=== PATIENT | female | born 1970 | race Caucasian/White ===

== ENCOUNTER 2020-06-20 06:53 | Outpatient (NON) | payer OTHER, SELFPAY ==
[2020-06-20 16:05] LABS: Influenza Control Positive
[2020-06-21 19:25] LABS: SARS-CoV-2 RNA PCR Negative
== END 2020-06-20 06:54 ==
LOC: ANHCOVIDDT 07:07
PROVIDERS: PCP Family Medicine; Visit Provider Family Medicine
DX: J02.9 Acute pharyngitis, unspecified (principal); Z20.828 Contact with and (suspected) exposure to other viral communicable diseases
CPT/HCPCS: 87635; 87804; C9803; U0003

== ENCOUNTER 2020-07-31 12:50 | Outpatient (NON) | payer OTHER, SELFPAY ==
[2020-07-31 13:57] LABS: Influenza Control Positive
== END 2020-07-31 12:51 ==
LOC: ANHCOVIDDT 12:51
PROVIDERS: PCP Family Medicine; Visit Provider Family Medicine
DX: R05 Cough (principal)
CPT/HCPCS: 87804

== ENCOUNTER 2021-01-09 10:49 | Outpatient (CLI) | payer OTHER, SELFPAY ==
--- NOTE | ~2021-01-09 | XR_ITS ---
EXAMINATION: XR foot RT min 3V EXAM DATE: 01/09/2021 11:03 INDICATION: Initial encounter following injury, with pain of the right 3rd-5th metatarsal bones. TECHNIQUE: Right foot dorsoplantar, lateral and oblique projections obtained and reviewed. There is no prior study for comparison. FINDINGS: Right metatarsal bones unremarkable. There are no acute fractures or dislocations identifi ed. There is no subcutaneous gas. The soft tissue is unremarkable. There are no radiopaque foreig n bodies. IMPRESSION: 1. Unremarkable right foot exam. Reviewed, dictated and finalized at location A.
== END 2021-01-09 10:50 | disposition home or self-care (01) ==
PROVIDERS: PCP Family Medicine; Visit Provider Family Medicine
DX: M79.671 Pain in right foot (principal)
CPT/HCPCS: 73630

== ENCOUNTER → 2021-05-07 04:17 | Outpatient (CLI) | payer OTHER, SELFPAY ==
[2021-05-07 18:05] LABS: SARS-CoV-2 RNA PCR Negative
== END ==
PROVIDERS: PCP Family Medicine; Visit Provider Family Medicine
DX: R05.9 Cough, unspecified (principal); Z20.822 Contact with and (suspected) exposure to COVID-19
CPT/HCPCS: C9803; U0003; U0005

== ENCOUNTER 2021-07-17 10:47 | Outpatient (CLI) | payer OTHER, SELFPAY ==
--- NOTE | ~2021-07-17 | XR_ITS ---
EXAMINATION: XR hand LT min 3V INDICATION: Other specified soft tissue disorders, cyst of the third finger TECHNIQUE: Three views of the left hand are obtained. COMPARISON: None available FINDINGS: There is no fracture, dislocation, or subluxation. No specific soft tissue abnormality of t he fingers is identified. The joint spaces are unremarkable. IMPRESSION: 1. No acute osseous or specific soft tissue abnormality. Reviewed, dictated and finalized at location A. EM CONTROLLER
== END 2021-07-17 10:48 | disposition home or self-care (01) ==
LOC: ANHIMG 10:48
PROVIDERS: PCP Family Medicine; Visit Provider Family Medicine
DX: M79.89 Other specified soft tissue disorders (principal)
CPT/HCPCS: 73130

== ENCOUNTER 2021-08-14 14:34 | Outpatient (CLI) | payer OTHER, SELFPAY ==
--- NOTE | ~2021-08-14 | XR_ITS ---
EXAMINATION: XR chest 2V EXAM DATE: 08/14/2021 14:46 INDICATION: R05 - Cough, chest tightness. History pulmonary hypertension. TECHNIQUE: Frontal and lateral projections of the chest obtained and reviewed. Comparison is made to prior examination from 10/01/2017. FINDINGS: The main, central pulmonary arteries are dilated which can indicate elevated pulmonary beth rial pressure, pulmonary arterial hypertension. The lungs are clear. There are no pleural effusions. The cardiomediastinal silhouette is within normal limits. There is no pneumothorax suspected. The bones and soft tissues are unremarkable. IMPRESSION: No acute cardiopulmonary findings. Reviewed, dictated and finalized at location A. ER HOT KNIFE
== END 2021-08-14 14:35 | disposition home or self-care (01) ==
LOC: ANHIMG 14:37
PROVIDERS: PCP Family Medicine; Visit Provider Family Medicine
DX: R05.9 Cough, unspecified (principal)
CPT/HCPCS: 71046

== ENCOUNTER 2021-12-28 22:28 | Observation (INO) | payer OTHER, SELFPAY ==
--- NOTE | ~2021-12-28 | CT_ITS ---
EXAMINATION: CT abdomen pelvis wo con DATE: 12/29/2021 00:08 INDICATION: Left lower quadrant abdominal pain for 2 days TECHNIQUE: Computed tomography (CT) of the abdomen and pelvis was performed without intravenous contr ast. Automated exposure control and iterative reconstruction technique were employed. Exam dose: 892 .86 mGy-cm total exam DLP. COMPARISON: None. FINDINGS: There is minimal patchy posterior basilar right lower lobe infiltrate. The lung bases are o therwise clear of consolidation. Heart size is normal. No pericardial or pleural effusion. The liver, gallbladder, bile ducts, pancreas and pancreatic duct are unremarkable. Spleen measures approximately 12.3 cm length, within upper limits of normal. Normal morphology of the adrenal glands. No renal mass lesion or urinary tract calculus or hydroureteronephrosis. There is an IUD within the uterus. There are a couple of approximately 2-2.5 cm cysts in the left adn exal area. Mild accumulation of possible high density fluid, possibly blood in the posterior cul-de-sac. The urinary bladder is evacuated. The appendix is not visualized. No appendicitis is noted. No bowel obstruction, bowel wall thickening , pneumatosis or intraperitoneal free air. Small fat-containing umbilical hernia. Included skeletal structures are unremarkable. IMPRESSION: . 2 proximal lead II-2.5 cm left ovarian cyst IUD within uterus Mild possible blood collection in posterior cul-de-sac Reviewed, dictated and finalized at Location A. Reviewed, dictated and finalized at location A.
[2021-12-28 22:30] VITALS: BP 138/81; PULSE 87; RESP 18; TEMP 36.6; O2SAT 100
[2021-12-28 23:38] VITALS: BP 119/74; PULSE 72; RESP 20; O2SAT 99
--- NOTE | 2021-12-28 23:42 | ED.ABDPAIN ---
HPI - Abdominal Pain General Chief Complaint: Abdominal Pain Stated Complaint: abd pain Time Seen by Provider: 12/28/21 23:37 History of Present Illness HPI narrative: 51-year-old female presents emergency room for evaluation of left lower quadrant pain has been present for 3 days. Patient states it was a gradual onset is accompanied with some bloating. Patient denies any nausea, vomiting, diarrhea or constipation. Patient denies any radiating pain. Denies fever. No history of similar symptoms. Has a history of tubal ligation and . States her last menstrual cycle was several years ago Related Data Home Medications Medication Instructions Recorded Confirmed spironolactone 50 mg tablet 50 mg PO DAILY 06/26/19 01/09/21 warfarin 2.5 mg tablet 2.5 mg PO DAILY 06/26/19 01/09/21 furosemide 40 mg tablet (Lasix) 40 mg PO QAM 09/12/19 01/09/21 omeprazole 20 mg capsule,delayed 20 mg PO DAILY 09/12/19 01/09/21 release tadalafil 20 mg tablet 20 mg PO DAILY PRN 10/03/21 ambrisentan 10 mg tablet (Letairis) mg PO 12/28/21 ambrisentan 10 mg tablet (Letairis) tablet PO 12/28/21 tadalafil (pulm. hypertension) 20 tablet 12/28/21 mg tablet (pulmonary hypertension) Allergies Allergy/AdvReac Type Severity Reaction Status Date / Time cefuroxime Allergy Unknown Hives / Verified 12/28/21 23:31 Red Face Penicillins Allergy Unknown Hives Verified 12/28/21 23:31 Review of Systems Review of Systems: CONSTITUTIONAL: Denies fever, chills, or sweats. EYES: Denies visual changes, redness, or discharge. ENT: Denies rhinorrhea, congestion, sore throat, or otalgia. CARDIOVASCULAR: Denies chest pain, palpitations, or edema. RESPIRATORY: Denies cough or dyspnea. GASTROINTESTINAL: Reports left lower quadrant pain GENITOURINARY: Denies dysuria or hematuria. SKIN: Denies rash or itching. MUSCULOSKELETAL: Denies back pain, joint pain, or myalgia. NEUROLOGIC: Denies headache, numbness, dizziness, or weakness. PSYCHIATRIC: Denies anxiety or depression. [facility] Past Medical History Medical History Hyperlipidemia Pulmonary hypertension Vitamin D deficiency Surgical History Surgical History H/O tubal ligation Family History Family History Father Diabetes mellitus Hypertension Family history of diabetes mellitus in first degree relative Mother Hypertension Grandparent Diabetes mellitus Social History Social History Smoking status: Never smoker Second hand tobacco smoke exposure: No Alcohol intake: current Substance use: never Substance use type: does not use Gender identity (if verbalized by the patient): Female Spiritual care concerns: No Agree to blood products: Yes Exam Narrative: GENERAL: Well-appearing, well-nourished, and in no acute distress. HEAD: Normocephalic, atraumatic. EYES: PERRLA and EOMI. CHEST: Clear to auscultation. No respiratory distress. No wheezes rales or rhonchi HEART: Regular rate and rhythm. No murmur heard. Normal peripheral pulses. ABDOMEN: Soft, left lower quadrant tenderness, nondistended, normal active bowel sounds. No CVA tenderness EXTREMITIES: Normal range of motion. No edema. SKIN: Warm, dry, no rash. NEURO: No focal deficits. Alert and oriented x3. PSYCH: Normal mood and affect. Course Vital Signs Vital signs: Vital Signs Temperature 36.6 C 12/28/21 22:30 Pulse Rate 87 12/28/21 22:30 Respiratory Rate 18 12/28/21 22:30 Blood Pressure 138/81 12/28/21 22:30 Pulse Oximetry 100 12/28/21 22:30 Oxygen Delivery Room Air 12/28/21 22:30 Temperature 36.6 C 12/28/21 22:30 Pulse Rate 72 12/28/21 23:38 Respiratory Rate 20 12/28/21 23:38 Blood Pressure 119/74 12/28/21 23:38 Pulse Oximetry 99 12/28/21 23:38
[2021-12-28 23:43] LABS: Appearance Urine Clear (Clear); Bilirubin Urine Negative (Negative); Blood Urine Trace-lysed (Negative); Color Urine Yellow (Yellow); Glucose Urine UA Negative (Negative); Ketones Urine Negative (Negative); Leukocyte Esterase Ur Trace LEU/UL (Negative); Nitrate Urine Negative (Negative); Protein Urine Negative (Negative); Urobilinogen Urine 0.2 mg/dL (<2.0)
[2021-12-28 23:46] LABS: Bacteria Urine Trace /hpf; Mucus Urine Rare /lpf; RBC Urine 0-2 /hpf (0-2); Squamous Epithelial Cell Urine Many /hpf (Few); WBC Urine 0-3 /hpf
[2021-12-28 23:48] LABS: Add Urine Microscopic? YES; Basophils Percent Auto 0.1 % (0.2-1.2); Eosinophils Absolute Auto 0.1 K/mm3 (0-0.3); Eosinophils Percent Auto 1.7 % (0-4.4); Hematocrit 35.4 % (37.0-47.0); Hemoglobin 11.9 g/dL (12.0-15.0); Immature Granulocyte Absolute 0.04 K/mm3 (0.00-0.031); Immature Granulocyte Percent A 0.5 % (0-0.5); Lymphocytes Absolute Auto 1.81 K/mm3 (0.9-3.2); Lymphocytes Percent Auto 23.8 % (18.3-44.2); Mean Corpuscular HGB Conc 33.6 g/dl (32-36); Mean Corpuscular Volume 89.2 fl (80-100); Mean Platelet Volume 9.9 fl (7.4-10.4); Monocytes Absolute Auto 0.4 K/mm3 (0.1-0.6); Monocytes Percent Auto 5.5 % (2.6-8.5); Neutrophils Absolute Auto 5.2 K/mm3 (1.3-6.7); Neutrophils Percent Auto 68.4 % (45.5-73.1); Platelet Count Result 198 k/mm3 (150-375); Red Blood Count 3.97 M/mm3 (4.2-5.4); Red Cell Distribution Width 13.5 % (11.5-14.5); White Blood Count 7.6 K/mm3 (4.5-10.0)
[2021-12-28 23:55] LABS: Alanine Aminotransferase 37 U/L (6-35); Alkaline Phosphatase 70 U/L (38-126); Anion Gap 5 mmol/L (8-16); Aspartate Amino Transferase 30 U/L (14-36); Bilirubin,Total 0.3 mg/dL (0.2-1.3); Blood Urea Nitrogen 11 mg/dL (7-17); Calcium 8.5 mg/dL (8.4-10.2); Carbon Dioxide 24 mmol/L (22-30); Chloride 108 mmol/L (98-107); Estimated Glomerular Filt Rate > 60; Glucose 103 mg/dL (65-110); Lipase 43 U/L (23-300); Potassium 3.6 mmol/L (3.4-5.0); Sodium 137 mmol/L (137-145)
[2021-12-29] MEDS: SODIUM CHLORIDE 0.9% IV 1,000 ML 999 ML IV CONT (00:23)
[2021-12-29 00:57] VITALS: BP 124/72; PULSE 67; RESP 21; O2SAT 98
[2021-12-29 02:02] LABS: INR 2.7; Prothrombin Time 27.9 Seconds (11.1-14.7)
[2021-12-29 02:04] LABS: Partial Thromboplastin Time 69.7 SECONDS (22.3-36.8)
[2021-12-29 02:21] VITALS: BP 120/62; PULSE 75; RESP 18; O2SAT 99
[2021-12-29] MEDS: PHYTONADIONE ADULT INJ 10 MG in DEXTROSE 5% IN WATER 50 ML 100 MG IVPB (02:28)
--- NOTE | 2021-12-29 02:31 | PC.NURSE ---
Pt called this RN to room with c/o lip numbness and pain to lower back. Pt states I dont feel right . Denies respiratory s/s. Vitamin K infusion stopped immediately. Pts symptoms improved. EDP notified, okayed to transport to [address] [place] [address]. Rene MACIEL notified.
[2021-12-29 02:42] VITALS: BP 128/67; PULSE 88; RESP 16; O2SAT 100
--- NOTE | 2021-12-29 02:45 | ADMGEN ---
This patient, Laina Jamil, was admitted to 2 Medical Room 242-01. Patient/family oriented to hospital policies and general routines including ID bracelet, bed and alarms, visiting hours, pain management, procedures, bathroom and other care routines, personal items, smoking policy, room service/diet, and visiting hours. Information on how to activate the Rapid Response Team has been discussed. Patient/Family are encouraged to report perceived risks to care and to ask questions if they do not understand what they are told or what they should do.
[2021-12-29 02:47] VITALS: BMI 41.3
[2021-12-29 02:49] VITALS: BP 136/66; PULSE 84; RESP 18; TEMP 36.5; O2SAT 99
[2021-12-29] MEDS: SODIUM CHLORIDE 0.9% IV 1,000 ML 125 ML IV CONT ×2 (02:54→10:54)
[2021-12-29 09:40] VITALS: O2SAT 99
[2021-12-29] MEDS: ACETAMINOPHEN 500 MG TABLET 1000 MG PO (11:15)
--- NOTE | 2021-12-29 12:08 | PM.IMHP ---
H&P: [facility] History of Present Illness Date/Time: 12/29/21 12:08 Chief Complaint: Pelvic pain Narrative: this patient is a 51-year-old female with pulmonary hypertension and who is on Coumadin who presented the emergency department with left lower quadrant for left-sided pelvic pain. She was admitted for observation. Her CT revealed a small fluid collection with a density consistent of blood. She had a cyst complex in the left ovary that encompassed 5 cm . Her pain is improved during observation. She is tolerating p.o.. She is ambulating and voiding. She denies any fevers or chills. She denies any nausea, vomiting, chest pain, shortness of breath Review of Systems Review of Systems: All systems reviewed & are unremarkable except as noted in HPI and below Constitutional: Constitutional: Denies chills, Denies fatigue, Denies fever(s) and Denies weakness Eyes: Eyes: Denies blurry vision, Denies change in vision, Denies loss of peripheral vision, Denies loss of vision, Denies other visual disturbances and Denies eye pain ENT: Denies vertigo, Denies dizziness, Denies hearing loss, Denies mouth pain, Denies nasal obstruction, Denies neck mass and Denies neck pain Cardiovascular: Cardiovascular: Denies chest pain, Denies diaphoresis, Denies syncope, Denies leg edema and Denies dyspnea Respiratory: Respiratory: Denies chest congestion, Denies cough, Denies hemoptysis, Denies dyspnea and Denies wheezing Gastrointestinal: Gastrointestinal: Denies abdominal pain, Denies constipation, Denies diarrhea, Denies nausea and Denies vomiting Genitourinary: Genitourinary: Denies hematuria, Denies change in libido, Denies nocturia, Denies genital lesions, Denies flank pain and Denies urinary urgency Musculoskeletal: Musculoskeletal: Denies abnormal gait, Denies back pain, Denies myalgias, Denies arthralgias, Denies joint swelling, Denies muscle weakness and Denies neck pain Integumentary/Breasts: Skin/Breast: Denies swelling, Denies breast pain, Denies breast mass, Denies dry skin, Denies nipple discharge, Denies unusual bruising and Denies jaundice Neurologic: Denies Neuro-related abnormal movements, Denies Abnormal speech present, Denies abnormal gait, Denies behavioral changes, Denies confusion, Denies vertigo, Denies dizziness, Denies syncope, Denies loss of vision, Denies memory loss, Denies convulsions and Denies weakness Psychiatric: Psychiatric: Denies abnormal sleep pattern, Denies behavioral changes, Denies change in libido, Denies confusion, Denies depression, Denies anhedonia and Denies memory loss Endocrine: Endocrine: Reports no additional endocrine complaints, Denies change in libido and Denies fatigue Hematologic/Lymphatic: Hematologic/Lymphatic: Reports no additional hematologic/lymphatic complaints Allergic/Immunologic: Allergic/Immunologic: Reports no additional allergic/immunologic complaints and Denies wheezing PMFSH Past Medical History Medical History Hyperlipidemia Pulmonary hypertension Vitamin D deficiency Surgical History Surgical History H/O tubal ligation Family History Family History Father Diabetes mellitus Hypertension Family history of diabetes mellitus in first degree relative Mother Hypertension Grandparent Diabetes mellitus Social History Social History Smoking status: Never smoker Second hand tobacco smoke exposure: No Alcohol intake: current Drinks per week: 1 Substance use: never Substance use type: does not use Gender identity (if verbalized by the patient): Female Spiritual care concerns: No Agree to blood products: Yes Meds Home Medications and Allergies Home Medications Medication Instructions Recorded Confirmed Type spironolactone 50 mg
--- NOTE | 2022-01-18 14:18 | PM.OBTRLD ---
OB - Triage/Final Diagnosis Visit Information Comments/Additional reasons for admission: I have assessed the risk for this patient, Laina Jamil, and determined that she would benefit from observation care. Evaluation Laboratory results: Laboratory Tests 12/28/21 12/28/21 12/28/21 23:36 23:36 23:36 WBC 7.6 RBC 3.97 L Hgb 11.9 L Hct 35.4 L MCV 89.2 MCH 30.0 MCHC 33.6 RDW 13.5 Plt Count 198 MPV 9.9 Immature Gran % (Auto) 0.5 Neut % (Auto) 68.4 Lymph % (Auto) 23.8 [place] % (Auto) 5.5 Eos % (Auto) 1.7 Baso % (Auto) 0.1 L Lymph # (Auto) 1.81 [place] # (Auto) 0.4 Eos # (Auto) 0.1 Baso # (Auto) 0.0 Abs Immat Gran (auto) 0.04 H Absolute Neuts (auto) 5.2 Absolute Nucleated RBC 0.0 Nucleated RBC % 0.0 PT INR APTT Sodium 137 Potassium 3.6 Chloride 108 H Carbon Dioxide 24 Anion Gap 5 L BUN 11 Creatinine 0.80 Estim Creat Clear Calc Not Reportable Estimated GFR > 60 Glucose 103 Calcium 8.5 Total Bilirubin 0.3 AST 30 ALT 37 H Alkaline Phosphatase 70 Total Protein 7.0 Albumin 4.0 Lipase 43 Urine Color Yellow Urine Appearance Clear Urine pH 6.0 Ur Specific [place] 1.010 Urine Protein Negative Urine Glucose (UA) Negative Urine Ketones Negative Ur Blood (Man) Trace-lysed Urine Nitrate Negative Urine Bilirubin Negative Urine Urobilinogen 0.2 Leukocyte Esterase Rfl Trace H Urine RBC 0-2 Urine WBC 0-3 Ur Squamous Epith Cells Many H Urine Bacteria Trace Urine Mucus Rare 12/29/21 01:33 WBC RBC Hgb Hct MCV MCH MCHC RDW Plt Count MPV Immature Gran % (Auto) Neut % (Auto) Lymph % (Auto) [place] % (Auto) Eos % (Auto) Baso % (Auto) Lymph # (Auto) [place] # (Auto) Eos # (Auto) Baso # (Auto) Abs Immat Gran (auto) Absolute Neuts (auto) Absolute Nucleated RBC Nucleated RBC % PT 27.9 H INR 2.7 APTT 69.7 H Sodium Potassium Chloride Carbon Dioxide Anion Gap BUN Creatinine Estim Creat Clear Calc Estimated GFR Glucose Calcium Total Bilirubin AST ALT Alkaline Phosphatase Total Protein Albumin Lipase Urine Color Urine Appearance Urine pH Ur Specific [place] Urine Protein Urine Glucose (UA) Urine Ketones Ur Blood (Man) Urine Nitrate Urine Bilirubin Urine Urobilinogen Leukocyte Esterase Rfl Urine RBC Urine WBC Ur Squamous Epith Cells Urine Bacteria Urine Mucus Final Diagnosis (1) Pelvic pain: Code(s): R10.2 - Pelvic and perineal pain Status: Acute
== END 2021-12-29 13:17 | disposition home or self-care (01) ==
LOC: ANHED 12-29 01:53 → ANH2MED 12-29 02:16
PROVIDERS: Emergency Medicine; Admitting Provider Obstetrics & Gynecology; Emergency Provider Nurse Practitioner Family; PCP Family Medicine; Visit Provider Obstetrics & Gynecology
DX: N83.202 Unspecified ovarian cyst, left side (principal); K66.1 Hemoperitoneum; I27.20 Pulmonary hypertension, unspecified; I10 Essential (primary) hypertension; E55.9 Vitamin D deficiency, unspecified; E78.5 Hyperlipidemia, unspecified; Z79.01 Long term (current) use of anticoagulants; Z79.51 Long term (current) use of inhaled steroids
CPT/HCPCS: 36415; 74176; 80053; 81001; 81025; 83690; 85025; 85610; 85730; 96361; 96374; 99285; A9270; G0378; G0379; J3430; J7030

== ENCOUNTER 2022-03-03 11:39 | Outpatient (CLI) | payer OTHER, SELFPAY ==
[2022-03-03 12:33] LABS: Basophils Percent Auto 0.3 % (0.2-1.2); Eosinophils Absolute Auto 0.1 K/mm3 (0-0.3); Eosinophils Percent Auto 1.4 % (0-4.4); Hematocrit 38.7 % (37.0-47.0); Hemoglobin 12.6 g/dL (12.0-15.0); Immature Granulocyte Absolute 0.04 K/mm3 (0.00-0.031); Immature Granulocyte Percent A 0.7 % (0-0.5); Lymphocytes Absolute Auto 1.21 K/mm3 (0.9-3.2); Lymphocytes Percent Auto 20.5 % (18.3-44.2); Mean Corpuscular HGB Conc 32.6 g/dl (32-36); Mean Platelet Volume 10.9 fl (7.4-10.4); Monocytes Absolute Auto 0.5 K/mm3 (0.1-0.6); Monocytes Percent Auto 9.1 % (2.6-8.5); Platelet Count Result 182 k/mm3 (150-375); Red Blood Count 4.35 M/mm3 (4.2-5.4); Red Cell Distribution Width 13.2 % (11.5-14.5); White Blood Count 5.9 K/mm3 (4.5-10.0)
[2022-03-03 14:46] LABS: Alanine Aminotransferase 21 U/L (6-35); Alkaline Phosphatase 65 U/L (38-126); Amylase 49 U/L (30-110); Anion Gap 9 mmol/L (8-16); Aspartate Amino Transferase 25 U/L (14-36); Bilirubin,Total 0.4 mg/dL (0.2-1.3); Blood Urea Nitrogen 11 mg/dL (7-17); Calcium 9.1 mg/dL (8.4-10.2); Carbon Dioxide 26 mmol/L (22-30); Chloride 102 mmol/L (98-107); Estimated Glomerular Filt Rate > 60; Glucose 112 mg/dL (65-110); Lipase 24 U/L (23-300); Potassium 3.7 mmol/L (3.4-5.0); Sodium 137 mmol/L (137-145)
== END 2022-03-03 11:40 | disposition home or self-care (01) ==
PROVIDERS: PCP Family Medicine; Visit Provider Family Medicine
DX: R10.9 Unspecified abdominal pain (principal)
CPT/HCPCS: 36415; 80053; 82150; 83690; 84443; 85025

== ENCOUNTER 2022-09-25 14:44 | Emergency (ER) | payer OTHER, SELFPAY ==
[2022-09-25 15:14] VITALS: BP 106/67; PULSE 86; RESP 18; TEMP 37.2; O2SAT 96
--- NOTE | 2022-09-25 15:56 | ED.URI ---
HPI - URI/Sore Throat General Chief Complaint: Upper Respiratory Infection Stated Complaint: Sore Throat/Fever Time Seen by Provider: 09/25/22 15:56 Source: patient, RN notes reviewed and old records reviewed Mode of arrival: ambulatory Limitations: no limitations History of Present Illness HPI Narrative: 52-year-old female presents to the [facility] with complaints of sore throat and fever since yesterday. Patient states that she has taken Tylenol. No other medication. Reports ear fullness and sinus congestion as well Related Data Home Medications Medication Instructions Recorded Confirmed spironolactone 50 mg tablet 50 mg PO DAILY 06/26/19 09/25/22 warfarin 2.5 mg tablet 2.5 mg PO DAILY 06/26/19 09/25/22 furosemide 40 mg tablet (Lasix) 40 mg PO QAM 09/12/19 09/25/22 tadalafil 20 mg tablet 40 mg PO DAILY 10/03/21 09/25/22 ambrisentan 10 mg tablet (Letairis) 1 tablet PO DAILY 12/28/21 09/25/22 pantoprazole 40 mg tablet,delayed 1 tablet PO DAILY 12/29/21 09/25/22 release Allergies Allergy/AdvReac Type Severity Reaction Status Date / Time cefuroxime Allergy Unknown Hives / Verified 09/25/22 15:31 Red Face Penicillins Allergy Unknown Hives Verified 09/25/22 15:31 vitamin K2 AdvReac Unknown Numbness Verified 09/25/22 15:31 Review of Systems Review of Systems: All systems reviewed & are unremarkable except as noted in HPI and below Constitutional: Constitutional: Reports as per HPI, Reports chills, Reports fatigue and Reports fever(s) Eyes: Eyes: Reports no additional eye complaints ENT: Reports as per HPI Cardiovascular: Cardiovascular: Reports no additional cardiovascular complaints, Denies chest pain and Denies dyspnea Respiratory: Respiratory: Reports no additional respiratory complaints, Denies chest congestion, Denies cough and Denies dyspnea Gastrointestinal: Gastrointestinal: Reports no additional gastrointestinal complaints, Denies abdominal pain, Denies nausea and Denies vomiting Musculoskeletal: Musculoskeletal: Reports no additional musculoskeletal complaints Integumentary/Breasts: Skin/Breast: Reports system reviewed and no additional complaints, except as docu Neurologic: Reports system reviewed and no additional complaints, except as documented Psychiatric: Psychiatric: Reports no additional psychiatric complaints Allergic/Immunologic: Allergic/Immunologic: Reports no additional allergic/immunologic complaints PMFSH Past Medical History Medical History Hyperlipidemia Pulmonary hypertension Vitamin D deficiency Surgical History Surgical History H/O tubal ligation Family History Family History Father Diabetes mellitus Hypertension Family history of diabetes mellitus in first degree relative Mother Hypertension Grandparent Diabetes mellitus Social History Social History Smoking status: Never smoker Second hand tobacco smoke exposure: No Alcohol intake: current Drinks per week: 1 Substance use: never Substance use type: does not use Living arrangements: with family Occupation/Education: occupation Gender identity (if verbalized by the patient): Female Spiritual care concerns: No Agree to blood products: Yes Comments At the time of my signature, I reviewed and agree with the nursing past medical, surgical, social, and family history. There is no relevant family history pertinent to the patient complaint. Exam Const: General: cooperative, no acute distress, well developed, alert, ill appearing acutely, uncomfortable, well groomed and well nourished Nutritional Appearance: well nourished Orientation/consciousness: patient oriented x3 Limitations: no limitations HENMT: Head: normal to inspection Ears: hearing grossly normal
== END 2022-09-25 16:35 | disposition home or self-care (01) ==
PROVIDERS: Emergency Provider Nurse Practitioner; PCP Family Medicine
DX: U07.1 COVID-19 (principal); E78.5 Hyperlipidemia, unspecified; E55.9 Vitamin D deficiency, unspecified
CPT/HCPCS: 87081; 87426; 87804; 87880; 99213; C9803; G0463

== ENCOUNTER 2023-02-10 15:55 | Emergency (ER) | payer BC, OTHER, SELFPAY ==
--- NOTE | ~2023-02-10 | US_ITS ---
EXAMINATION: US pelvic complete DATE: 02/10/2023 20:06 INDICATION: Heavy vaginal bleeding. TECHNIQUE: Multiple transabdominal sonographic images of the pelvis were obtained. COMPARISON: CT abdomen and pelvis 12/28/2021 FINDINGS: The uterus measures 11.2 x 4.0 x 4.8 cm. There is no free fluid in the pelvis. The endometrial comple x measures 21 mm in thickness. The right ovary measures 1.9 x 1.5 x 2.1 cm. The left ovary measures 3 .9 x 2.5 x 3.6 cm. There is a 2.5 cm dominant follicle in left ovary. There is normal vascular flow i n the ovaries. IMPRESSION: 1. Thickened endometrial complex, which may be seen with endometrial hyperplasia or polyp. Reviewed, dictated and finalized at location E. IMPRESSION: 1. Thickened endometrial complex, which may be seen with endometrial hyperplasi a or polyp.
[2023-02-10 16:20] VITALS: BP 133/74; PULSE 69; RESP 18; TEMP 36.3; O2SAT 96
[2023-02-10 19:00] LABS: Basophils Percent Auto 0.4 % (0.2-1.2); Eosinophils Absolute Auto 0.2 K/mm3 (0-0.3); Eosinophils Percent Auto 1.5 % (0-4.4); Hematocrit 41.6 % (37.0-47.0); Hemoglobin 13.8 g/dL (12.0-15.0); Immature Granulocyte Absolute 0.05 K/mm3 (0.00-0.031); Immature Granulocyte Percent A 0.5 % (0-0.5); Lymphocytes Absolute Auto 2.08 K/mm3 (0.9-3.2); Lymphocytes Percent Auto 18.9 % (18.3-44.2); Mean Corpuscular HGB Conc 33.2 g/dl (32-36); Mean Corpuscular Hemoglobin 29.7 pg (26-34); Mean Corpuscular Volume 89.5 fl (80-100); Mean Platelet Volume 10.6 fl (7.4-10.4); Monocytes Absolute Auto 0.5 K/mm3 (0.1-0.6); Monocytes Percent Auto 4.5 % (2.6-8.5); Neutrophils Absolute Auto 8.2 K/mm3 (1.3-6.7); Neutrophils Percent Auto 74.2 % (45.5-73.1); Platelet Count Result 215 k/mm3 (150-375); Red Blood Count 4.65 M/mm3 (4.2-5.4); Red Cell Distribution Width 13.4 % (11.5-14.5)
--- NOTE | 2023-02-10 19:42 | ED.FEMALEGU ---
HPI - Female Genitourinary General Chief complaint: Vaginal Bleeding <Sadie Sweeney PA-C - Last Filed: 02/11/23 04:02> Stated complaint: heavy vaginal bleeding <Sadie Sweeney PA-C - Last Filed: 02/11/23 04:02> Time Seen by Provider: 02/10/23 19:06 <Sadie Sweeney PA-C - Last Filed: 02/11/23 04:02> History of Present Illness HPI Narrative: 52-year-old female with a history of a D&C in 2004 and a D&C prior to 2002 due to miscarriages and left-sided hemorrhagic ovarian cyst reports for evaluation for vaginal bleeding x1 month, worsening over the past 2 to 3 days. Patient states that she had her IUD removed in November and since then she has had a intermittent vaginal bleeding, needing to change her pad once every few hours. States 2 to 3 days ago, the bleeding increased and she has been having a change a pad every hour and has been having to double up on pads. She reports associated left-sided cramping with the pain. States she has passed multiple blood clots greater than the size of a quarter since the onset of heavier vaginal bleeding. She denies back pain, chest pain or shortness of breath, lightheadedness or dizziness, loss of consciousness, fever, dysuria. Reports she called her BUTT MAKER's office, Dr. Alonso, and spoke to a MA who advised her to come to the ED for evaluation. Patient takes 2.5 mg of warfarin daily prescribed her screen making technician for idiopathic pulmonary hypertension. She denies vaginal discharge or concern for STDs. <Sadie Sweeney PA-C - Last Filed: 02/11/23 04:02> Related Data Home medications: Home Medications Medication Instructions Recorded Confirmed spironolactone 50 mg tablet 50 mg PO DAILY 06/26/19 09/25/22 warfarin 2.5 mg tablet 2.5 mg PO DAILY 06/26/19 09/25/22 furosemide 40 mg tablet (Lasix) 40 mg PO QAM 09/12/19 09/25/22 tadalafil 20 mg tablet 40 mg PO DAILY 10/03/21 09/25/22 ambrisentan 10 mg tablet (Letairis) 1 tablet PO DAILY 12/28/21 09/25/22 pantoprazole 40 mg tablet,delayed 1 tablet PO DAILY 12/29/21 09/25/22 release <Sadie Sweeney PA-C - Last Filed: 02/11/23 04:02> Allergies/Adverse reactions: Allergies Allergy/AdvReac Type Severity Reaction Status Date / Time cefuroxime Allergy Unknown Hives / Verified 02/10/23 15:56 Red Face Penicillins Allergy Unknown Hives Verified 02/10/23 15:56 menaquinone-7 (vitamin K2) AdvReac Unknown Numbness Verified 02/10/23 15:56 [vitamin K2] <Sadie Sweeney PA-C - Last Filed: 02/11/23 04:02> Review of Systems Review of Systems: CONSTITUTIONAL: Denies fever, chills EYES: Denies visual changes, redness, or discharge. ENT: Denies rhinorrhea, congestion, sore throat, or otalgia. CARDIOVASCULAR: Denies chest pain, palpitations, or edema. RESPIRATORY: Denies cough or dyspnea. GASTROINTESTINAL: See HPI GENITOURINARY: See HPI SKIN: Denies rash or itching. MUSCULOSKELETAL: Denies back pain, joint pain, or myalgia. NEUROLOGIC: Denies headache, numbness, dizziness, or weakness. PSYCHIATRIC: Denies anxiety or depression. <Sadie Sweeney PA-C - Last Filed: 02/11/23 04:02> [facility] Past Medical History Medical History: Medical History Hyperlipidemia Pulmonary hypertension Vitamin D deficiency <Sadie Sweeney PA-C - Last Filed: 02/11/23 04:02> Surgical History Surgical History: Surgical History H/O tubal ligation <Sadie Sweeney PA-C - Last Filed: 02/11/23 04:02> Family History Family History: Family History Father Diabetes mellitus Hypertension Family history of diabetes mellitus in first degree relative Mother Hypertension Grandparent Diabetes mellitus <Sadie Sweeney PA-C - Last Filed: 02/11/23 04:02> Social History Social History: Social History (Reviewed 02/10/23 @ 1
[2023-02-10 21:25] LABS: Alanine Aminotransferase 26 U/L (6-35); Albumin Level 4.5 g/dL (3.5-5.1); Alkaline Phosphatase 74 U/L (38-126); Anion Gap 6 mmol/L (8-16); Aspartate Amino Transferase 26 U/L (14-36); Bilirubin,Total 0.5 mg/dL (0.2-1.3); Blood Urea Nitrogen 12 mg/dL (7-17); Carbon Dioxide 26 mmol/L (22-30); Chloride 105 mmol/L (98-107); Estimated Glomerular Filt Rate > 60; Glucose 99 mg/dL (65-110); Potassium 3.7 mmol/L (3.4-5.0); Sodium 137 mmol/L (137-145)
[2023-02-10 21:28] LABS: Bacteria Urine Rare /hpf; Non Pathogenic Casts 0-2; RBC Urine >100 /hpf (0-2); Squamous Epithelial Cell Urine None seen /hpf (Few)
[2023-02-10 21:29] LABS: INR 1.2
[2023-02-10] MEDS: SODIUM CHLORIDE 0.9% IV 1,000 ML 999 ML IV CONT (21:29)
[2023-02-10 21:30] LABS: Partial Thromboplastin Time 31.4 SECONDS (22.3-36.8)
[2023-02-10 21:44] LABS: Appearance Urine Cloudy (Clear); Bilirubin Urine Negative (Negative); Blood Urine 3+ (Negative); Color Urine Red (Yellow); Glucose Urine UA Negative (Negative); Ketones Urine Negative (Negative); Leukocyte Esterase Ur Negative LEU/UL (Negative); Nitrate Urine Negative (Negative); Protein Urine 2+ mg/dL (Negative); Urobilinogen Urine 0.2 mg/dL (<2.0); pH Urine 5.5 (5.0-9.0)
[2023-02-10 21:48] LABS: Add Urine Microscopic? YES
[2023-02-10 23:04] LABS: Pregnancy On Board Control Positive; Urine Pregnancy Test Negative
[2023-02-10 23:10] VITALS: BP 130/66; PULSE 75; RESP 14; O2SAT 100
== END 2023-02-10 23:12 | disposition home or self-care (01) ==
PROVIDERS: Emergency Medicine; Emergency Provider Physician Assistant; PCP Family Medicine
DX: N93.9 Abnormal uterine and vaginal bleeding, unspecified (principal); R10.9 Unspecified abdominal pain; E78.5 Hyperlipidemia, unspecified; Z79.01 Long term (current) use of anticoagulants
CPT/HCPCS: 36415; 76856; 80053; 81001; 81025; 85025; 85610; 85730; 86850; 86900; 86901; 87077; 87086; 87186; 96360; 99284; J7030

== ENCOUNTER 2023-03-09 17:08 | Outpatient (CLI) | payer BC, OTHER, SELFPAY ==
--- NOTE | 2023-03-09 17:22 | ECG_ITS ---
Measurements Intervals Harvest Rate: 63 P: 21 NJ: 156 QRS: 44 QRSD: 98 T: 27 QT: 408 QTc: 421 Interpretive Statements SINUS RHYTHM LOW QRS VOLTAGE IN PRECORDIAL LEADS [QRS DEFLECTION < 1.0 mV IN CHEST LEADS] ABNORMAL ECG NO PREVIOUS ECG AVAILABLE FOR COMPARISON Electronically Signed On 03-10-2023 9:17:36 CDT by Celio العلي M.D.
[2023-03-09 17:58] LABS: Alanine Aminotransferase 36 U/L (6-35); Albumin Level 4.4 g/dL (3.5-5.1); Alkaline Phosphatase 52 U/L (38-126); Anion Gap 9 mmol/L (8-16); Aspartate Amino Transferase 25 U/L (14-36); Bilirubin,Total 0.4 mg/dL (0.2-1.3); Blood Urea Nitrogen 14 mg/dL (7-17); Calcium 9.1 mg/dL (8.4-10.2); Carbon Dioxide 21 mmol/L (22-30); Chloride 106 mmol/L (98-107); Estimated Glomerular Filt Rate > 60; Glucose 92 mg/dL (65-110); Potassium 3.9 mmol/L (3.4-5.0); Sodium 136 mmol/L (137-145)
== END 2023-03-09 17:09 | disposition home or self-care (01) ==
PROVIDERS: PCP Family Medicine; Visit Provider Obstetrics & Gynecology
DX: Z01.812 Encounter for preprocedural laboratory examination (principal); Z01.810 Encounter for preprocedural cardiovascular examination; N92.0 Excessive and frequent menstruation with regular cycle; I27.20 Pulmonary hypertension, unspecified; R94.31 Abnormal electrocardiogram [ECG] [EKG]
CPT/HCPCS: 36415; 80053; 86850; 86900; 86901; 93005

== ENCOUNTER 2023-03-17 01:47 | Day surgery (SDC) | payer BC, OTHER, SELFPAY ==
--- NOTE | 2023-03-08 14:27 | PC.NURSE ---
Report to the Outpatient Waiting Room, entrance under the green pavilion located off [facility], at time 0800 on date 03/17/23. Planned Procedure Time: 1000. Time changes happen often and if your time is changed the preop area will call you the afternoon before. - You and your visitor will be asked to self-screen and do not enter if you have any COVID symptoms. - A mask is optional within the hospital at this time. Patients may have clear liquids (water, carbonated beverages, clear teas, apple juice) until 3 hours prior to surgery with a maximum of 20 ounces. 0700 - No food from midnight until time of surgery - Infants may have breast milk until 4 hours before surgery, formula 6 hours prior to surgery. - Children will be allowed to drink immediately following surgery. If applicable, please bring a bottle or sippy cup to assist with drinking. Juice, water, soda, and popsicles are readily available. For infants on formula, please bring formula the day of surgery. Pacifiers are allowed. Take the following medications with a SIP of water the morning of surgery: None DO NOT STOP ANY OF YOUR OTHER PRESCRIPTION MEDICATIONS PRIOR TO SURGERY ?EXCEPT THE FOLLOWING Medications to discontinue per physician Letairis, Furosemide, Protonix, Spironolactone, Tadalafil Date to take last dose 03/16/23 Please no make-up, nail [place] islander, hairspray, perfume, deodorant, or body powder the day of surgery. No jewelry (including any body piercings) or valuables the day of surgery, leave them at home. Please take a shower or bath the night before, or the morning of, surgery with an antibacterial soap. Wear comfortable, loose fitting clothing. Children are encouraged to wear pajamas. - Jewelry must be removed prior to entering the operating room. Rings and piercings that are not removed may be cut off. - The hospital will not accept responsibility for valuables. - Please leave all valuables, including medications, at home the day of surgery. If you are going home after surgery, a licensed stage driver must drive you home. - NO public transportation without another adult if you receive anesthesia. - We recommend that an adult stay with you for 24 hours following discharge. - We also recommend that you do not drive, make important decision, drink alcoholic beverages, or take any drugs that were not prescribed by your health care provider for at least 24 hours after your discharge time. For Pediatric surgeries, we recommend two adults accompany the child home. Follow any additional instructions given to you from your surgeon. If you or anyone in your household have experienced Covid symptoms in the past week, please notify your surgeon or the nurse liaison at the phone number below for possible testing. Telephone instructions given to Laina Mo- Patient and asked if any additional questions and then verbalized understanding. Patient advised to call surgeon office or pre surgery nurse liaison [phone] if any additional questions.
[2023-03-08 14:35] VITALS: BMI 40.5
--- NOTE | 2023-03-16 13:40 | WPDANESEPPF ---
Anes - Initial Pre Proc Eval Procedure: Operation Date: 03/17/23 10:00 Proposed Procedures p Total Laparoscopic Hysterectomy with Bilateral Salpingo-oophorectomy - Shan Alonso MD Date/Time: 03/16/23 13:40 Surgeon: Shan Alonso MD Pre Op Diagnosis: Menorrhagia Patient Data Age: 52 Gender: F Height: 1.45 m Weight: 85 kg Allergies Allergy/AdvReac Type Severity Reaction Status Date / Time cefuroxime Allergy Unknown Hives / Verified 03/17/23 08:37 Red Face Penicillins Allergy Unknown Hives Verified 03/17/23 08:37 menaquinone-7 (vitamin K2) AdvReac Unknown Numbness Verified 03/17/23 08:37 [vitamin K2] Home Medications Medication Instructions Recorded Confirmed Type spironolactone 50 mg tablet 50 mg PO DAILY 06/26/19 03/08/23 History furosemide 40 mg tablet (Lasix) 40 mg PO QAM 09/12/19 03/08/23 History tadalafil 20 mg tablet 40 mg PO DAILY 10/03/21 03/08/23 History ambrisentan 10 mg tablet (Letairis) 1 tablet PO DAILY 12/28/21 03/08/23 History pantoprazole 40 mg tablet,delayed 1 tablet PO DAILY 12/29/21 03/08/23 History release albuterol sulfate 90 mcg/actuation See Rx Instructions .Route 03/08/23 03/08/23 History aerosol inhaler .COMPLEX PRN Shortness Of Breath Patient hx anesthesia problems: none Family hx anesthesia problems: none Results Review: All pre-operative results and documents have been reviewed as part of the pre-operative evaluation. FORMERLY [facility], [facility] Past Medical History Medical History Hyperlipidemia Pulmonary hypertension Vitamin D deficiency Surgical History Surgical History H/O tubal ligation Family History Family History Father Diabetes mellitus Hypertension Family history of diabetes mellitus in first degree relative Mother Hypertension Grandparent Diabetes mellitus Social History Social History Smoking status: Never smoker Second hand tobacco smoke exposure: No Alcohol intake: current Drinks per week: 1 Alcohol use details: 1-2 times per month Substance use: never Substance use type: does not use Living arrangements: with family Occupation/Education: occupation Gender identity (if verbalized by the patient): Female Spiritual care concerns: No Agree to blood products: Yes Anes - Eval Final PreProcedure Day of Procedure 03/16/23 13:40 Patient weight: morbidly obese Heart: regular rate and rhythm Lungs: clear to auscultation Airway: Mallampati scale class III Neurological: alert and oriented Last oral intake: >/= 8 hours ASA classification: III Emergent: no Anesthetic plan: proceed Anesthesia type and monitoring: general ETT and standard monitoring Results Review: All pre-operative results and documents have been reviewed as part of the pre-operative evaluation. Informed Consent: The patient's anesthetic plan and its attendant risks and benefits were discussed with the patient/family/POA. Questions were solicited and answers provided to the satisfaction of the patient/family/POA.
[2023-03-17] VITALS (10 sets, daily range): BP systolic 105–140; BP diastolic 53–85; PULSE 60–72; RESP 10–18; TEMP 36.6–37.2; O2SAT 93–100; BMI 40.8
[2023-03-17] MEDS: ACETAMINOPHEN 500 MG TABLET 1000 MG PO (08:50)
[2023-03-17] MEDS: KETOROLAC 15 MG/ML VIAL (*BKC) IV PUSH (08:50)
[2023-03-17] MEDS: LACTATED RINGERS 1,000 ML 30 ML IV CONT ×2 (08:53→12:44)
--- NOTE | 2023-03-17 09:34 | PM.IMHP ---
H&P: HPI History of Present Illness Date/Time: 03/17/23 09:34 Chief Complaint: Heavy vaginal bleeding Narrative: This patient is a 52-year-old female with severe menorrhagia. We have agreed to perform total laparoscopic hysterectomy and bilateral salpingo-oophorectomy. The patient understands the procedure. The procedure was described to the patient in great detail. the patient also understands the risks. The risks were also explained in detail. She understands that injuries May occur during surgery. She understands these injuries can result in hospitalization, more surgery, and severe illness. She understands there is risk of hemorrhage and infection. [facility] Past Medical History Medical History Hyperlipidemia Pulmonary hypertension Vitamin D deficiency Surgical History Surgical History H/O tubal ligation Family History Family History Father Diabetes mellitus Hypertension Family history of diabetes mellitus in first degree relative Mother Hypertension Grandparent Diabetes mellitus Social History Social History Smoking status: Never smoker Second hand tobacco smoke exposure: No Alcohol intake: current Drinks per week: 1 Alcohol use details: 1-2 times per month Substance use: never Substance use type: does not use Living arrangements: with family Occupation/Education: occupation Gender identity (if verbalized by the patient): Female Spiritual care concerns: No Agree to blood products: Yes Meds Home Medications and Allergies Home Medications Medication Instructions Recorded Confirmed Type spironolactone 50 mg tablet 50 mg PO DAILY 06/26/19 03/08/23 History furosemide 40 mg tablet (Lasix) 40 mg PO QAM 09/12/19 03/08/23 History tadalafil 20 mg tablet 40 mg PO DAILY 10/03/21 03/08/23 History ambrisentan 10 mg tablet (Letairis) 1 tablet PO DAILY 12/28/21 03/08/23 History pantoprazole 40 mg tablet,delayed 1 tablet PO DAILY 12/29/21 03/08/23 History release albuterol sulfate 90 mcg/actuation See Rx Instructions .Route 03/08/23 03/08/23 History aerosol inhaler .COMPLEX PRN Shortness Of Breath Allergies Allergy/AdvReac Type Severity Reaction Status Date / Time cefuroxime Allergy Unknown Hives / Verified 03/17/23 08:37 Red Face Penicillins Allergy Unknown Hives Verified 03/17/23 08:37 menaquinone-7 (vitamin K2) AdvReac Unknown Numbness Verified 03/17/23 08:37 [vitamin K2] Vital Signs Vital Signs - 24 hr 03/17/23 08:20 Temperature 97.8 F Pulse Rate 69 Respiratory Rate 16 Blood Pressure 128/69 Pulse Oximetry 100 Oxygen Delivery Room Air Exam Const: General: cooperative, healthy appearing, comfortable and no acute distress Orientation/consciousness: oriented to person, oriented to place and oriented to time HENMT: Head: normal to inspection Ears: external ears normal Face/Nose/Sinus: Normal external nose present and normal facial exam Face and sinus: normal facial exam Eyes: General: appearance normal, both eyes and all related structures Neck: Neck: normal visual inspection, trachea midline and supple Resp: Auscultation: clear to auscultation bilaterally, no crackles, no rales, no rhonchi and no wheezes Cardio: Rate: regular rate Rhythm: regular rhythm Heart sounds: no click, no murmurs and no rubs GI: GI Palp: No abdominal tenderness, No Soft to palpation, No Tenderness to palpation present (GI) and No Palpable mass present Auscultation: normal bowel sounds Skin: General skin exam: normal color and no rashes or lesions noted Neuro: General: oriented to person, oriented to place and oriented to time Extrem: General: normal to inspection, no joint enlargement, no clubbing, cyanosis or edema, no pedal edema and no priyanka
--- NOTE | 2023-03-17 09:36 | WPDHPUPDATE1 ---
History and Physical Update Update Date/Time: 03/17/23 09:36 History and Physical has been reviewed, including an updated exam of the patient. There are NO changes in the patient's condition. Risks, benefits, and alternatives have been discussed and questions answered. Patient agrees to proceed with procedure.
[2023-03-17] MEDS: CLINDAMYCIN 900 MG/D5W 50 ML 900 MG/50 ML PIGGYBACK 50 MG IVPB (10:06)
--- NOTE | 2023-03-17 11:12 | SUR.OPER ---
gentmycin 80mg mixed with 1000ml ivns for irrigation
--- NOTE | 2023-03-17 12:30 | SUR.OPER ---
EBL: 50ml, Urine:250ml
--- NOTE | 2023-03-17 12:37 | W.PM.PROC2 ---
Procedure Note - Detailed Date of Procedure 03/17/23 Pre-op Diagnosis Menorrhagia Post-op Diagnosis Same (Pelvic adhesions) Procedure Performed Total laparoscopic hysterectomy and bilateral salpingo-oophorectomy. Adhesiolysis Surgeon Shan Alonso MD Anesthesia General Indications Vaginal bleeding/menorrhagia Findings Enlarged uterus, very vascular uterus, adhesions. Description of Procedure This patient was taken to the operating room. She was prepped and draped in the dorsal lithotomy position after induction of general anesthesia. The uterine manipulator and Frank cup were placed. This was done with a speculum and tenaculum. The speculum was placed. The cervix was grasped with a tenaculum. The stay sutures were placed at 3 and 9:00 a.m.. The stay sutures of 0 Vicryl were brought through the appropriately sized Frank cup. The tip of the ELLE manipulator was placed in the intrauterine cavity. The cup was slid into place around the cervix and into the fornices. It was locked into place. The sutures were then wrapped around the handle and tied under tension. A 5 mm skin incision was made in the left upper quadrant the abdomen. A 5 mm trocar was inserted into the intrauterine cavity under direct visualization of the scope. Pneumoperitoneum was achieved. A left lower quadrant 11 mm incision was made with scalpel. An 11 mm trocar was inserted into the anterior abdominal cavity under direct visualization the scope. A 5 mm infraumbilical incision was made with a scalpel and a 5 mm trocar was inserted the intra-abdominal cavity under direct visualization of the scope. 30 minutes of adhesiolysis was performed using cautery and blunt dissection. It was done between the omentum the anterior abdominal wall, around the pelvis and the uterus throughout the case. Bilateral ureteral lysis was performed. This was done from the pelvic brim down to the uterine artery. This was done with careful dissection using sharp and blunt dissection. The infundibulopelvic ligaments were isolated after identification of the ureters bilaterally. These infundibulopelvic ligaments were cauterized and transected with LigaSure cautery. The para ovarian tissue was cauterized and transected with LigaSure cautery bilaterally. Moving around the ovary into the broad ligament the tissue was cauterized transected with LigaSure cautery. The round ligaments were cauterized transected with LigaSure cautery this was all done in a bilateral fashion. In a stepwise fashion along the lateral aspects of the uterus the round ligament and broad ligaments were cauterized transected down to the level of the uterine arteries. A bladder flap was created in the bladder was moved distally to the end of the cervix and over the Frank cup. The bilateral uterine arteries were cauterized and transected. Colpotomy was then performed. In a circumferential fashion the vagina was transected using unipolar cautery. The incision was made down on the Frank cup. The uterus, cervix, fallopian tubes and ovaries were taken out through the vagina. A pneumo occluder was placed in the vagina. The vaginal cuff was closed with a 0 V lock suture in a running fashion. The pelvis was irrigated with copious amounts antibiotic irrigation. The ureters were again examined and found to be intact and flowing freely under the uterine arteries into the bladder. The bladder was intact. It was examined directly. The vagina was irrigated with Betadine solution after removal of the Pneumo occluder. The patient was taken to recovery room. She was stable condition. Sponge lap and needle counts were correct x2. Drains Yes Packing No Pathology Yes Complications No immediate complications Condition Stable Disposition Floor
[2023-03-17] MEDS: fentaNYL CITRATE INJ (*CRX) 100 MCG/2 ML VIAL 25 MCG IV PUSH ×4 (13:09→13:44)
[2023-03-17] MEDS: ONDANSETRON INJ 4 MG/2 ML VIAL IV PUSH ×2 (13:52→16:29)
[2023-03-17] MEDS: DEXTROSE 5%/0.45% SOD CHL 1,000 ML 125 ML IV CONT (14:50)
[2023-03-17] MEDS: KETOROLAC 30 MG/ML VIAL (*BKC) IV PUSH ×2 (15:02→20:42)
--- NOTE | 2023-03-17 16:34 | ADMGEN ---
1411-This patient, Laina Jamil, was admitted to OB 2nd Floor Room 283-00. Patient/family oriented to hospital policies and general routines including ID bracelet, bed and alarms, visiting hours, pain management, procedures, bathroom and other care routines, personal items, smoking policy, room service/diet, and visiting hours. Information on how to activate the Rapid Response Team has been discussed. Patient/Family are encouraged to report perceived risks to care and to ask questions if they do not understand what they are told or what they should do.
[2023-03-17] MEDS: SCOPOLAMINE 1.5 MG PATCH TRANSDERM (19:27)
[2023-03-17] MEDS: HYDROcodone/acetaminophen (*CRX) 5-325 MG TABLET 1 TAB PO (23:23)
[2023-03-18] MEDS: HYDROcodone/acetaminophen (*CRX) 10-325 MG TABLET 1 TAB PO ×2 (02:32→08:10)
[2023-03-18 08:00] VITALS: PULSE 67; RESP 18; O2SAT 95
[2023-03-18 08:05] VITALS: BP 108/58; PULSE 67; RESP 18; TEMP 37.4; O2SAT 95
[2023-03-18] MEDS: SPIRONOLACTONE 50 MG TABLET PO (08:09)
[2023-03-18] MEDS: IBUPROFEN 600 MG TABLET PO (08:09)
[2023-03-18] MEDS: PANTOPRAZOLE 40 MG TABLET PO (08:10)
[2023-03-18] MEDS: FUROSEMIDE 40 MG TABLET PO (08:10)
--- NOTE | 2023-03-18 08:22 | PM.GYNPNOP ---
[employer] - A/P Postoperative Procedures: Procedures Operation Date: 03/17/23 10:00 Actual Procedure Side Surgeon p Total Laparoscopic Hysterectomy with Bilateral Salpingo-oophorectomy Bilateral Shan Alonso MD Postoperative day: 1 Postoperative status: doing well Postoperative plan: see orders Time Spent With Patient Time: Total time spent is greater than 50% in coordination of care (as documented) at patient's floor/unit and/or counseling patient: Time with patient: less than 15 minutes [employer]- PN:Subj Post-Op Subjective Date/time seen: 03/18/23 08:22 Subjective: patient reports feeling better, patient has no complaints and pain is well controlled Exam Const: General: healthy appearing, comfortable and no acute distress Resp: Auscultation: clear to auscultation bilaterally, no rales, no rhonchi and no wheezes Cardio: Rate: regular rate Heart sounds: no click, no murmurs and no rubs GI: Inspection: non-distended Auscultation: normal bowel sounds Extrem: General: normal to inspection, no pedal edema and no calf tenderness [employer] - PN: Obj Data Vital Signs Vital Signs: Vital Signs - 24 hr 03/17/23 12:50 03/17/23 13:05 03/17/23 13:20 Temperature 98.3 F Pulse Rate 69 60 65 Respiratory Rate 12 10 L 11 L Blood Pressure 105/53 L 131/85 135/60 Pulse Oximetry 99 100 96 Oxygen Delivery Simple Face Mask Simple Face Mask Room Air Oxygen Flow Rate 8 8 03/17/23 13:35 03/17/23 13:50 03/17/23 14:15 Temperature 98.9 F Pulse Rate 65 68 61 Respiratory Rate 10 L 15 18 Blood Pressure 126/56 L 110/64 140/83 Pulse Oximetry 93 98 100 Oxygen Delivery Room Air Nasal Cannula Oxygen Flow Rate 2 03/17/23 14:30 03/17/23 20:40 03/17/23 20:40 Temperature 98.5 F Pulse Rate 61 71 Respiratory Rate 18 16 Blood Pressure 108/60 Pulse Oximetry 100 96 Oxygen Delivery Room Air Room Air Oxygen Flow Rate 03/17/23 23:20 Temperature 98.1 F Pulse Rate 72 Respiratory Rate 18 Blood Pressure 120/63 Pulse Oximetry Oxygen Delivery Oxygen Flow Rate Intake/Output Intake/Output: Intake & Output 03/15/23 03/16/23 03/17/23 03/18/23 23:59 23:59 23:59 23:59 Intake Total 2650 Output Total 1200 150 Balance 1450 -150 Meds/Results Medications: Active Medications Generic Name Dose Route Start Last Admin Trade Name Freq PRN Reason Stop Dose Admin Hydrocodone Bitart/Acetaminophen 1 tab 03/17/23 14:02 03/17/23 23:23 Hydrocodone/Acetaminophen (*Crx) 5-325 Mg Tablet PO 1 tab Q3H PRN Administration Pain Rated 5 or Less Hydrocodone Bitart/Acetaminophen 1 tab 03/17/23 14:02 03/18/23 08:10 Hydrocodone/Acetaminophen (*Crx) 10-325 Mg Tablet PO 1 tab Q3H PRN Administration Pain Rated 6 or Greater Albuterol 2 puff 03/17/23 14:02 Albuterol Sulfate (*Sp) Aerosol 1 Puff INHALATION Q4H PRN Shortness Of Breath/Wheezing Furosemide 40 mg 03/18/23 09:00 03/18/23 08:10 Furosemide 40 Mg Tablet PO 40 mg QAM EFREM Administration Dextrose/Sodium Chloride 1,000 mls @ 125 mls/hr 03/17/23 14:02 03/17/23 23:20 Dextrose 5% Sodium Chloride 0.45% IV CONT Not Given .Q8H EFREM Ibuprofen 600 mg 03/17/23 14:02 03/18/23 08:09 Ibuprofen 600 Mg Tablet PO 600 mg Q6H PRN Administration Cramping Ketorolac Tromethamine 30 mg 03/17/23 14:02 03/17/23 20:42 Ketorolac 30 Mg/Ml Vial (*Bkc) IV PUSH 03/22/23 14:01 30 mg Q6H PRN Administration Pain Rated 4-6 Metoclopramide HCl 10 mg 03/17/23 19:02 Metoclopramide Hcl Inj 10 Mg/2 Ml Vial IV PUSH Q6H PRN NAUSEA NOT RELIEVED BY ZOFRAN Naloxone HCl 0.1 mg 03/17/23 14:02 Naloxone Hcl 0.4 Mg/Ml Vial IV PUSH Q2M PRN Respiratory rate less than 10 Ondansetron HCl 4 mg 03/17/23 14:02 03/17/23 16:29 Ondansetron Inj 4 Mg/2 Ml Vial IV PUSH 4 mg Q6H PRN Administration Nausea And Vomiting Pantoprazole Sodium 40 mg 03/18/23 09:00 03/18/23 08:10 Facundo
--- NOTE | 2023-03-18 08:40 | WPDANESPN ---
Anes - Prog Note Post-Op Date/Time: 03/18/23 08:40 Cardiovascular status: normal Respiratory status: normal Airway patency: baseline Mental status: baseline Post-Op hydration status: normal Vital Signs: Last Vital Signs Temp 98.1 F 03/17/23 23:20 Pulse 72 03/17/23 23:20 Resp 18 03/17/23 23:20 BP 120/63 03/17/23 23:20 Pulse Ox 96 03/17/23 20:40 O2 Del Method Room Air 03/17/23 20:40 O2 Flow Rate 2 03/17/23 13:50 Pain Score (VAS): 3 I/O: Intake & Output 03/17/23 03/18/23 03/18/23 23:59 07:59 15:59 Intake Total 1100 Output Total 1200 150 Balance -100 -150 Post-procedural complaints: nausea (resolved with scopolamine patch) and vomiting Patient Feedback: Patient satisfied with anesthetic care.
== END 2023-03-18 12:31 | disposition home or self-care (01) ==
LOC: ANHSURGERY 08:14 → ANHOB2 14:03
PROVIDERS: PCP Family Medicine; Visit Provider Obstetrics & Gynecology
PROC: 0UT9FZZ Resection of Uterus, Via Natural or Artificial Opening With Percutaneous Endoscopic Assistance (ICD-10-PCS; CPT 58571; principal; 2023-03-17 10:00)
DX: N92.0 Excessive and frequent menstruation with regular cycle (principal); N85.02 Endometrial intraepithelial neoplasia [EIN]; N80.101 Endometriosis of right ovary, unspecified depth; N73.6 Female pelvic peritoneal adhesions (postinfective); E78.5 Hyperlipidemia, unspecified; I27.20 Pulmonary hypertension, unspecified; Z79.891 Long term (current) use of opiate analgesic; Z79.51 Long term (current) use of inhaled steroids; E66.01 Morbid (severe) obesity due to excess calories; Z68.41 Body mass index [BMI] 40.0-44.9, adult
CPT/HCPCS: 58571; 88307; 99199; A9270; J0690; J1100; J1170; J1580; J1885; J2250; J2405; J2704; J3010; J7030; J7120

== ENCOUNTER 2023-04-09 08:54 | Emergency (ER) | payer BC, OTHER, SELFPAY ==
[2023-04-09 09:04] VITALS: BP 128/67; PULSE 83; RESP 16; TEMP 37.5; O2SAT 99
--- NOTE | 2023-04-09 09:43 | ED.EAR ---
HPI - Ear Problem General Stated complaint: right ear pain Time Seen by Provider: 04/09/23 09:43 Source: patient Mode of arrival: ambulatory Limitations: no limitations History of Present Illness HPI Narrative: 52-year-old female presents with complaint of right ear pain. Reports that she had mild left ear pain 2 days ago that resolved. Right ear pain started yesterday. Reports waking up this morning with some mild nasal congestion and postnasal drainage. States right lymph node in neck is sore. Afebrile. All systems reviewed and negative except as noted above. Related Data Home Medications Medication Instructions Recorded Confirmed spironolactone 50 mg tablet 50 mg PO DAILY 06/26/19 03/08/23 furosemide 40 mg tablet (Lasix) 40 mg PO QAM 09/12/19 03/08/23 tadalafil 20 mg tablet 40 mg PO DAILY 10/03/21 03/08/23 ambrisentan 10 mg tablet (Letairis) 1 tablet PO DAILY 12/28/21 03/08/23 pantoprazole 40 mg tablet,delayed 1 tablet PO DAILY 12/29/21 03/08/23 release albuterol sulfate 90 mcg/actuation See Rx Instructions .Route 03/08/23 03/08/23 aerosol inhaler .COMPLEX PRN Shortness Of Breath Allergies Allergy/AdvReac Type Severity Reaction Status Date / Time cefuroxime Allergy Unknown Hives / Verified 03/17/23 08:37 Red Face Penicillins Allergy Unknown Hives Verified 03/17/23 08:37 menaquinone-7 (vitamin K2) AdvReac Unknown Numbness Verified 03/17/23 08:37 [vitamin K2] Review of Systems Review of Systems: CONSTITUTIONAL: Denies fever, chills, or sweats. EYES: Denies visual changes, redness, or discharge. ENT: Reports rhinorrhea, congestion, right ear pain. Denies sore throat CARDIOVASCULAR: Denies chest pain, palpitations, or edema. RESPIRATORY: Denies cough or dyspnea. GASTROINTESTINAL: Denies abdominal pain, nausea, vomiting, or diarrhea. GENITOURINARY: Denies dysuria or hematuria. SKIN: Denies rash or itching. MUSCULOSKELETAL: Denies back pain, joint pain, or myalgia. NEUROLOGIC: Denies headache, numbness, or weakness. PSYCHIATRIC: Denies anxiety or depression. All other systems reviewed are negative, except as documented in HPI. PMFSH Past Medical History Medical History Hyperlipidemia Pulmonary hypertension Vitamin D deficiency Surgical History Surgical History H/O tubal ligation Family History Family History Father Diabetes mellitus Hypertension Family history of diabetes mellitus in first degree relative Mother Hypertension Grandparent Diabetes mellitus Social History Social History Smoking status: Never smoker Second hand tobacco smoke exposure: No Alcohol intake: current Drinks per week: 1 Alcohol use details: 1-2 times per month Substance use: never Substance use type: does not use Living arrangements: with family Occupation/Education: occupation Gender identity (if verbalized by the patient): Female Spiritual care concerns: No Agree to blood products: Yes Comments At time of signature, agree with nursing past medical, surgical, social and family history. There is no relevant family history pertinent to the presenting complaint. Exam Narrative: GENERAL: This is a well-nourished, well-developed patient, in no apparent distress. HEAD: normocephalic, atraumatic. EYES: PERRL. Sclera clear/white. Vision is grossly intact. EARS: External ears normal, auditory canals clear and without drainage, mild fluid to left TM. Fluid to right TM is purulence, Mild bulging with no perforation. Dull light reflex bilaterally. NOSE: External nose normal with Clear nasal drainage, mild erythema to bilateral nares without swelling. THROAT: Mucous membranes moist, No erythema or swelling to posterior pharynx. Clear postnasal
== END 2023-04-09 09:52 | disposition home or self-care (01) ==
PROVIDERS: Emergency Provider Nurse Practitioner Family; PCP Family Medicine
DX: H65.01 Acute serous otitis media, right ear (principal); E78.5 Hyperlipidemia, unspecified; I27.20 Pulmonary hypertension, unspecified
CPT/HCPCS: 99213; G0463

== ENCOUNTER 2023-05-05 10:52 | Outpatient (CLI) | payer BC, OTHER, SELFPAY ==
--- NOTE | ~2023-05-05 | US_ITS ---
Duplex Sonography of the left extremity: Indication: DVT, recent surgery Findings: Sagittal and transverse B-mode images as well as color-flow imaging were performed on the l eft femoral and popliteal veins. B-mode examination was done without and with compression in the tra nsverse plane. There is good visualization of the common femoral, proximal profunda femoral, superfi cial femoral, greater saphenous, and popliteal veins. Normal flow was seen on color-flow imaging. No rmal compressibility was demonstrated. Visualized calf veins are also patent. Impression: No evidence of deep vein thrombosis involving the left lower extremity. Reviewed, dictated and finalized at location M. Impression: No evidence of deep vein thrombosis involving the left lower extremity.
== END 2023-05-05 10:53 | disposition home or self-care (01) ==
PROVIDERS: PCP Family Medicine; Visit Provider Nurse Practitioner Family
DX: M79.605 Pain in left leg (principal); R09.89 Other specified symptoms and signs involving the circulatory and respiratory systems
CPT/HCPCS: 93971

== ENCOUNTER 2023-07-10 10:59 | Outpatient (CLI) | payer BC, OTHER, SELFPAY ==
--- NOTE | ~2023-07-10 | MR_ITS ---
MRI of the left knee Clinical history: Pain Technique: Coronal proton density and proton density-weighted images, sagittal proton-density and T2 fat-sat images, and axial proton-density fat-saturated images were acquired. Findings: Anterior and posterior cruciate ligaments are intact. Medial collateral ligament and the la teral collateral ligament complex are intact. Popliteus tendon is intact. There is probable radial tear at the posterior root of the medial meniscus. No lateral meniscal tear seen. There is moderate chondral thinning along the medial tibial plateau and at the medial joint line. The re is minimal chondral thinning in the lateral compartment. There is mild chondral thinning of the pa tellofemoral compartment. Extensor mechanism is intact. Small joint effusion present. No Raymond's cyst. Impression: Radial tear at the posterior root of the medial meniscus. Mild degenerative changes, as above. Reviewed, dictated and finalized at [facility]. CE NURSE Impression: Radial tear at the posterior root of the medial meniscus. Mild degenerative changes, as above.
== END 2023-07-10 11:00 | disposition home or self-care (01) ==
LOC: ANHIMG 11:02
PROVIDERS: PCP Family Medicine; Visit Provider Nurse Practitioner Family
DX: S83.242A Other tear of medial meniscus, current injury, left knee, initial encounter (principal); M94.262 Chondromalacia, left knee; M25.462 Effusion, left knee; X58.XXXA Exposure to other specified factors, initial encounter
CPT/HCPCS: 73721

== ENCOUNTER 2023-07-23 02:50 | Day surgery (SDC) | payer BC, OTHER, SELFPAY ==
[2023-07-14 12:16] VITALS: BMI 36.6
--- NOTE | 2023-07-14 12:39 | PC.NURSE ---
Spoke with __PATIENT regarding medication _WARFARIN . Pt. verbalizes understanding that the last dose of _WARFARIN is to be taken on ___07/18/2023 and the Endoscopist will instruct them when to restart after the procedure.
--- NOTE | 2023-07-21 09:16 | SUR.PREOP ---
Patient called regarding upcoming procedure. Message left on pt's voicemail regarding appointment times.
--- NOTE | 2023-07-22 09:57 | WPDANESEPPF ---
Anes - Initial Pre Proc Eval Procedure: Operation Date: 07/23/23 11:00 Proposed Procedures p Screening Colonoscopy - Adarsh Oliver MD Date/Time: 07/22/23 09:57 Surgeon: Adarsh Oliver MD Pre Op Diagnosis: neoplasm screening Patient Data Age: 52 Gender: F Height: 1.45 m Weight: 76.75 kg Allergies Allergy/AdvReac Type Severity Reaction Status Date / Time cefuroxime Allergy Severe Hives / Verified 07/23/23 10:05 Red Face menaquinone-7 (vitamin K2) Allergy Severe Numbness Verified 07/23/23 10:05 [vitamin K2] Penicillins Allergy Severe Hives Verified 07/23/23 10:05 Home Medications Medication Instructions Recorded Confirmed Type spironolactone 50 mg tablet 50 mg PO DAILY 06/26/19 07/23/23 History furosemide 40 mg tablet (Lasix) 40 mg PO QAM 09/12/19 07/23/23 History tadalafil 20 mg tablet 40 mg PO HS 10/03/21 07/23/23 History ambrisentan 10 mg tablet (Letairis) 1 tablet PO HS 12/28/21 07/23/23 History pantoprazole 40 mg tablet,delayed 1 tablet PO HS 12/29/21 07/23/23 History release fluticasone propionate 50 1 spray intranasal BID #16 grams 04/09/23 07/23/23 Rx mcg/actuation nasal spray,suspension (Flonase Allergy Relief) phentermine 37.5 mg capsule 37.5 mg PO DAILY #90 caps 06/25/23 07/23/23 Rx tramadol 50 mg tablet 50 mg PO BID PRN pain #30 tabs 06/25/23 07/23/23 Rx albuterol sulfate 90 mcg/actuation See Rx Instructions .Route 06/28/23 07/23/23 Rx aerosol inhaler .COMPLEX #8.5 ea warfarin 2 mg tablet 3 mg PO HS 07/14/23 07/23/23 History Patient hx anesthesia problems: none Family hx anesthesia problems: none Results Review: All pre-operative results and documents have been reviewed as part of the pre-operative evaluation. [facility] Past Medical History Medical History Hyperlipidemia Obesity (BMI 30-39.9) Pulmonary hypertension Vitamin D deficiency Surgical History Surgical History H/O tubal ligation H/O: hysterectomy (03/17/23) Family History Family History Father Diabetes mellitus Hypertension Family history of diabetes mellitus in first degree relative Mother Hypertension Grandparent Diabetes mellitus Social History Social History Smoking status: Never smoker Second hand tobacco smoke exposure: No Alcohol intake: current Drinks per week: 1 Alcohol use details: 1-2 times per month Substance use: never Substance use type: does not use Living arrangements: with family Occupation/Education: occupation Gender identity (if verbalized by the patient): Female Spiritual care concerns: No Agree to blood products: Yes Anes - Eval Final PreProcedure Day of Procedure 07/22/23 09:57 Patient weight: obese Heart: regular rate and rhythm Lungs: clear to auscultation Airway: Mallampati scale class II Neurological: alert and oriented Last oral intake: >/= 8 hours ASA classification: III Emergent: no Anesthetic plan: proceed Anesthesia type and monitoring: general GIVS and standard monitoring Results Review: All pre-operative results and documents have been reviewed as part of the pre-operative evaluation. Informed Consent: The patient's anesthetic plan and its attendant risks and benefits were discussed with the patient/family/POA. Questions were solicited and answers provided to the satisfaction of the patient/family/POA.
[2023-07-23 10:07] VITALS: BP 125/69; PULSE 73; RESP 20; TEMP 36.2; O2SAT 97; BMI 36.6
[2023-07-23] MEDS: LACTATED RINGERS 1,000 ML 150 ML IV CONT (10:10)
--- NOTE | 2023-07-23 10:28 | PM.HPGS ---
History of Present Illness History of Present Illness Consent: Risks, benefits, and alternatives have been discussed and questions answered. Patient agrees to proceed with procedure. Chief complaint: neoplasm screening Narrative: Laina Ho is a 52 year old female here for first screening colonoscopy Review of Systems Constitutional: Constitutional: Denies headache(s) and Denies weakness Eyes: Eyes: Denies blurry vision ENT: Reports Normal hearing present, Denies headache(s) and Denies neck pain Cardiovascular: Cardiovascular: Denies chest pain and Denies dyspnea Respiratory: Respiratory: Denies dyspnea Gastrointestinal: Gastrointestinal: Reports no additional gastrointestinal complaints Genitourinary: Genitourinary: Denies dysuria Musculoskeletal: Musculoskeletal: Denies neck pain Integumentary/Breasts: Skin/Breast: Denies dry skin Neurologic: Reports Normal hearing present, Denies headache(s) and Denies weakness Psychiatric: Psychiatric: Denies anxiety Endocrine: Endocrine: Denies change in body appearance Hematologic/Lymphatic: Hematologic/Lymphatic: Denies easy bleeding Allergic/Immunologic: Allergic/Immunologic: Denies urticaria PMF Past Medical History Medical History (Updated 07/23/23 @ 10:28 by Adarsh Oliver MD) Colon cancer screening Hyperlipidemia Obesity (BMI 30-39.9) Pulmonary hypertension Vitamin D deficiency Surgical History Surgical History H/O tubal ligation H/O: hysterectomy (03/17/23) Family History Family History Father Diabetes mellitus Hypertension Family history of diabetes mellitus in first degree relative Mother Hypertension Grandparent Diabetes mellitus Social History Social History Smoking status: Never smoker Second hand tobacco smoke exposure: No Alcohol intake: current Drinks per week: 1 Alcohol use details: 1-2 times per month Substance use: never Substance use type: does not use Living arrangements: with family Occupation/Education: occupation Gender identity (if verbalized by the patient): Female Spiritual care concerns: No Agree to blood products: Yes Meds Home Medications and Allergies Home Medications Medication Instructions Recorded Confirmed Type spironolactone 50 mg tablet 50 mg PO DAILY 06/26/19 07/23/23 History furosemide 40 mg tablet (Lasix) 40 mg PO QAM 09/12/19 07/23/23 History tadalafil 20 mg tablet 40 mg PO HS 10/03/21 07/23/23 History ambrisentan 10 mg tablet (Letairis) 1 tablet PO HS 12/28/21 07/23/23 History pantoprazole 40 mg tablet,delayed 1 tablet PO HS 12/29/21 07/23/23 History release fluticasone propionate 50 1 spray intranasal BID #16 grams 04/09/23 07/23/23 Rx mcg/actuation nasal spray,suspension (Flonase Allergy Relief) phentermine 37.5 mg capsule 37.5 mg PO DAILY #90 caps 06/25/23 07/23/23 Rx tramadol 50 mg tablet 50 mg PO BID PRN pain #30 tabs 06/25/23 07/23/23 Rx albuterol sulfate 90 mcg/actuation See Rx Instructions .Route 06/28/23 07/23/23 Rx aerosol inhaler .COMPLEX #8.5 ea warfarin 2 mg tablet 3 mg PO HS 07/14/23 07/23/23 History Allergies Allergy/AdvReac Type Severity Reaction Status Date / Time cefuroxime Allergy Severe Hives / Verified 07/23/23 10:05 Red Face menaquinone-7 (vitamin K2) Allergy Severe Numbness Verified 07/23/23 10:05 [vitamin K2] Penicillins Allergy Severe Hives Verified 07/23/23 10:05 Vital Signs Vital Signs - 24 hr 07/23/23 10:07 Temperature 97.2 F L Pulse Rate 73 Respiratory Rate 20 Blood Pressure 125/69 Pulse Oximetry 97 Oxygen Delivery Room Air Exam Const: General: comfortable and no acute distress HENMT: Face/Nose/Sinus: Normal nares present Eyes: General: appearance normal, both eyes and all related struct
[2023-07-23 10:44] VITALS: BP 102/67; PULSE 64; RESP 26; O2SAT 100
[2023-07-23 10:54] VITALS: BP 105/58; PULSE 64; RESP 26; O2SAT 100
[2023-07-23 11:04] VITALS: BP 123/60; PULSE 65; RESP 18; O2SAT 100
== END 2023-07-23 11:10 | disposition home or self-care (01) ==
PROVIDERS: PCP Family Medicine; Visit Provider Internal Medicine Gastroenterology
PROC: 0DJD8ZZ Inspection of Lower Intestinal Tract, Via Natural or Artificial Opening Endoscopic (ICD-10-PCS; CPT 45378; principal; 2023-07-23 11:00)
DX: Z12.11 Encounter for screening for malignant neoplasm of colon (principal); K64.8 Other hemorrhoids; E78.5 Hyperlipidemia, unspecified; I27.20 Pulmonary hypertension, unspecified; E55.9 Vitamin D deficiency, unspecified; E66.9 Obesity, unspecified; Z68.36 Body mass index [BMI] 36.0-36.9, adult; Z79.01 Long term (current) use of anticoagulants; Z79.51 Long term (current) use of inhaled steroids
CPT/HCPCS: 45378; J7120

== ENCOUNTER 2024-05-16 13:55 | Outpatient (CLI) | payer BC, SELFPAY ==
--- NOTE | ~2024-05-16 | XR_ITS ---
XR forearm RT 2V Ordering provider: ESTRELLA Marcos History: . M79.631 - Pain in right forearm, no injury . Comparison: None. FINDINGS: BONES: No acute fracture or dislocation. JOINT SPACES: Normal. SOFT TISSUES: Normal. IMPRESSION: No acute osseous abnormality right forearm. Reviewed, dictated and finalized at location A.
== END 2024-05-16 13:56 | disposition home or self-care (01) ==
PROVIDERS: PCP Nurse Practitioner Family; Visit Provider Nurse Practitioner Family
DX: M79.631 Pain in right forearm (principal)
CPT/HCPCS: 73090

== ENCOUNTER 2024-06-08 10:18 | Outpatient (CLI) | payer BC, SELFPAY ==
--- NOTE | ~2024-06-08 | MR_ITS ---
MRI of the right forearm Clinical history pain, lump TECHNIQUE: T1-weighted and STIR images were acquired in the axial, coronal, and sagittal planes. FINDINGS: Bone marrow signals are unremarkable. No fracture or bone marrow edema. No periosteal react ion. No evidence for osteitis. Joint spaces appear intact. Visualized musculature intact. No muscle atrophy or edema seen. Visualized tendons are intact. Subcut aneous soft tissues are unremarkable. No soft tissue mass or fluid collection seen. IMPRESSION: No significant abnormality seen. Reviewed, dictated and finalized at location M. AULIC HAMMER OPERATOR
== END 2024-06-08 10:19 | disposition home or self-care (01) ==
LOC: MICIMG 10:19
PROVIDERS: PCP Nurse Practitioner Family; Visit Provider Nurse Practitioner Family
DX: M79.631 Pain in right forearm (principal)
CPT/HCPCS: 73218

== ENCOUNTER 2024-08-22 12:12 | Outpatient (CLI) | payer BC, SELFPAY ==
--- NOTE | 2024-08-22 14:45 | NEURO_ITS ---
Impression: # Complains of pain in right forearm. # Mild sensory Carpal Tunnel Syndrome. # No ulnar neuropathy. # Normal needle/EMG exam. Nerve Conduction Studies Anti Sensory Summary Table ?Stim Site NR Peak (ms) P-T Amp (?V) Site1 Site2 Delta-P (ms) Dist (cm) Leonard (m/s) Right Median Anti Sensory (2-3nd Digit) Wrist ? 3.5 52.8 Wrist 2-3nd Digit 3.5 14.0 40 Wrist ? 3.9 17.5 Wrist 2-3nd Digit 3.5 14.0 40 Right Radial Anti Sensory (Base 1st Digit) Wrist ? 1.6 41.2 Wrist Base 1st Digit 1.6 0.0 Right Ulnar Anti Sensory (5th Digit) Wrist ? 2.0 47.1 Wrist 5th Digit 2.0 14.0 70 Motor Summary Table ?Stim Site NR Onset (ms) O-P Amp (mV) Site1 Site2 Delta-0 (ms) Dist (cm) Leonard (m/s) Right Median Motor (Abd Poll Brev) Wrist ? 3.0 8.0 Elbow Wrist 4.2 25.0 60 Elbow ? 7.2 6.0 Right Ulnar Motor (Abd Dig Minimi) Wrist ? 2.0 9.1 A Elbow Wrist 4.7 29.0 62 A Elbow ? 6.7 5.5 F Wave Studies ?NR F-Lat (ms) L-R F-Lat (ms) Right Median (Mrkrs) (Abd Poll Brev) ? 24.16 Right Ulnar (Mrkrs) (Abd Dig Min) ? 23.73 EMG ?Side Muscle Nerve Root Ins Act Fibs Amp Dur Recrt Comment Right 1stDorInt Ulnar C8-T1 Nml Nml Nml Nml Nml Right Ext Indicis Radial (Post Int) C7-8 Nml Nml Nml Nml Nml Right Ext Digitorum Radial (Post Int) C7-8 Nml Nml Nml Nml Nml Right BrachioRad Radial C5-6 Nml Nml Nml Nml Nml Right PronatorTeres Median C6-7 Nml Nml Nml Nml Nml Right Abd Poll Brev Median C8-T1 Nml Nml Nml Nml Nml Right ABD Dig Min Ulnar C8-T1 Nml Nml Nml Nml Nml MTDD
--- OUTSIDE RECORDS SUMMARY | 2024-08-24 18:09 | XMS_ITS | Encounter Summary ---
Author Organization [facility] Address [address] [place] [address] Care Team Providers Care Secondary School Principal Name Role Phone Unavailable Primary Care Provider Unavailabl e Encounter Details Date Type Department Care Team (Late st Contact Info) Description 06/29/2023 Lab Requisition [facility] - DermPath Lab [address] [place] [address] Ángel Ogden MD [address] [place] [address] Social History Tobacco Use Types Packs/Day Years Used Date Smoking Tobacco: Never Assessed Sex and Gender Information Value Date Recorded Sex Assigned at Not on file Gender Identity Not on file Sexual Orientation Not on file documented as of this encounter Plan of Treatment Not on file documented as of this encounter Procedures Procedure Name Priority Date/Time Associated Diagnosis Comments DERMATOPATHOLOGY Routine 06/22/2023 12:0 0 AM OPERATOR COATING FURNACE documented in this encounter Results * DERMATOPATHOLOGY (06/22/2023 12:00 AM OPERATOR COATING FURNACE) Case Report Dermatopathology Report ? Case: [id number] ? Authorizing Provider: ??Ángel Ogden MD ?Collected: ? 06/22/2023 12:00 AM ? Ordering Location: ? [facility] ? Received: ?06/29/2023 06:56 AM ? Pathologist: ? Luci Galvan, ? MD ? Specimen: ?Skin, left lat neck ? 3 5:18 PM [facility] DERMATOPATH[facility]ORAT[facility] Final Diagnosis Specimen A. SKIN, left lat neck: SEBORRHEIC KERATOSIS (L82.1) 3 5:18 PM [facility]ERMATOPATHOLOGY LABORATORY Clinical History Nevus 3 5:18 PM [facility] DERMATOPATHOLOGY LABORATORY Gross Description Specimen A: Received is one formalin filled container labeled with the patients name and designated left lat neck. The specimen consists of a shave removal measuring 6x3x5 mm. Jar 0+. 3 5:18 PM [facility] DERMATOPATHOLOGY LABORATORY Microscopic Description Specimen A. SKIN, left lat neck: Sections show an acanthotic lesion composed of relatively uniform keratinocytes. There is hyperkeratosis and pseudo horn cysts formation. 3 5:18 PM [facility] DERMATOPATHOLOGY LABORATORY Disclaimer An external and internal positive and negative controls are appropriate for the histochemical, immunohistochemical and immunofluorescence stain(s) in this case (if any), except where stated explicitly. The performance characteristics of the stain(s) cited in this report were developed and its performance characteristic determined by the Dermatopathology Laboratory at [facility], directed by Dr. Tristan Swanson. These tests need not be, and therefore are not, approved by the [place] Food and Drug Administration. The tests are used for clinical purposes. Billing Codes Specimen Charges Stain Charges 95621 1 3 5:18 PM [facility] DERMATOPATHOLOGY LABORATORY Embedded Images 3 5:18 PM [facility] DERMATOPATHOLOGY LABORATORY Pathology/Cytolog y TISSUE SPECIMEN FROM SKIN / Unknown 06/22/2023 06/29/2023 6:56 AM OPERATOR COATING FURNACE Ángel Ogden MD LAB - PATHOLOGY/CYTO LOGY ORDERABLES DERMATOPATHOLOGY LABORATORY [facility] - Department of Dermatology [address], [address] [phone] documented in this encounter Visit Diagnoses Not on filedocumented in this encounter
--- OUTSIDE RECORDS SUMMARY | 2024-08-24 18:09 | XMS_ITS | Referral Summary ---
Author Organization [facility] Address [address] [place] [address] Care Team Providers Care Asbestos Coverer Name Role Phone Zenaida Rodriguez DO Primary Care Provider + Allergies Active Allergy Reactions Criticality Noted Date Comments Penicillins Hives,Swelling Medium Medications cyanocobalamin (Vitamin B-12) 100 mcg tabletIndicatio ns:Prevention of Vitamin B12 Deficiency Active cholecalciferol (VITAMIN D-3) 2000 unit capsule Active ergocalciferol (VITAMIN D) 50,000 unit capsule Take by mouth Active PROCTOSOL HC 2.5 % rectal cream 0 06/05/20 19 Active albuterol HFA (PROVENTIL HFA,VENTOLIN HFA,PROAIR HFA) 90 mcg/actuation inhaler INHALE 2 PUFFS BY MOUTH EVERY 4 HOURS NEEDED FOR SHORTNESS OF BREATH OR WHEEZING 06/18/20 20 Active triamcinolone (KENALOG) 0.1 % cream APPLY 1 APPLICATION TOPICALLY TWICE A DAY 07/17/[address] (PROTONIX) 40 mg EC tablet TAKE 1 TABLET BY MOUTH EVERY DAY 90 tablet 3 09/30/19 24 Active Letairis 10 mg tabletIndicatio ns:Pulmonary Arterial Hypertension Take 1 tablet (10 mg total) by mouth daily 30 tablet 11 10/01/19 24 025 Active warfarin (COUMADIN) 2 mg tablet TAKE 1 AND 1/2 TABLETS (3 MG TOTAL) BY MOUTH DAILY 135 tablet 3 11/11/19 24 Active furosemide (LASIX) 20 mg tablet Take 2 tablets (40 mg total) by mouth daily 180 tablet 3 12/30/19 24 025 Active spironolactone (ALDACTONE) 50 mg tablet Take 1 tablet (50 mg total) by mouth daily 90 tablet 3 02/04/20 24 Active tadalafiL, pulm. hypertension, (ADCIRCA) 20 mg tablet TAKE 2 TABLETS BY MOUTH 1 TIME A DAY 60 tablet 10 08/15/19 25 Active tadalafiL, pulm. hypertension, (ADCIRCA) 20 mg tablet Take 2 tablets (40 mg total) by mouth daily 60 tablet 10 09/07/19 24 025 Discontinued Active Problems Problem Noted Date Diagnosed Date Chronic pulmonary heart disease 10/13/2010 Idiopathic PAH (pulmonary arterial hypertension) Immunizations Name Administration Dates Next Due Influenza, Quadrivalent, Sita l Culture-based MDCK, Preservative Free, Antibiotic Free, Intramuscular 06/16/2022,09/05/2020,09/07/2019 Influenza, Quadrivalent, Spl it, Preservative Free, Intramuscular 09/16/2021 Influenza, Trivalent, Preser vative Free, Intramuscular 05/10/2008 Social History Tobacco Use Types Packs/Day Years Used Date Smoking Tobacco: Never Smokeless Tobacco: Never AUDIT-C Answer Date Recorded Q1: How often do you have a drink containing alc ohol? Monthly or less 09/16/2021 Q2: How many drinks containi ng alcohol do you have on a typical day when you are drinking? 3 or 4 09/16/2021 Q3: How often do you have si x or more drinks on one occasion? 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 Gender Identity Not on file Sexual Orientation Not on file Last Filed Vital Signs Vital Sign Reading Time Taken Comments Blood Pressure 128/76 01/26/2023 12:45 PM CDT Pulse 81 01/26/2023 12:45 PM CDT Temperature 36.3 ??C (97.3 ??F) 01/26/2023 12:45 PM C DT Respiratory Rate 18 01/26/2023 12:45 PM CDT Oxygen Saturation 97% 01/26/2023 12:45 PM CDT Inhaled Oxygen Concentration - - Weight 86.2 kg (190 lb) 01/26/2023 12:45 PM CDT Height 147.3 cm (4' 10 ) 01/26/2023 12:45 PM CDT Body Mass Index 39.71 01/26/2023 12:45 PM CDT Plan of Treatment Not on file Insurance [facility] Advance Directives For more information, please contact: [phone] * Full Code (Latest Code Status on File) Date Activated Date Inactivated Comments 09/16/2021 2:37 PM 09/16/2021 7:21 PM Care Teams Asbestos Coverer Relationship Specialty Start Date End Date Zenaida Rodriguez DO [address] [place] [id number] PCP - General 09/03/17
--- OUTSIDE RECORDS SUMMARY | 2024-08-24 18:09 | XMS_ITS | Encounter Summary ---
Author Organization [facility] Address [address] [place] [address] Phone Care Team Providers Care Telecommunications Project Manager Name Role Phone Zenaida Rodriguez DO Primary Care Provider + Encounter Details Date Type Department Care Team (Latest Contact Info) Description 12/20/2019 Orders Only [facility] Scanning, Provider Social History Tobacco Use Types Packs/Day Years Used Date Smoking Tobacco: Never Smokeless Tobacco: Never Comments Unknown Sex and Gender Information Value Date Recorded Sex Assigned at Not on file Legal 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 Gender Identity Not on file Sexual Orientation Not on file documented as of this encounter Plan of Treatment Not on file documented as of this encounter Procedures Procedure Name Priority Date/Time Associated Diagnosis Comments SCAN - LABS 12/20/2019 documented in this encounter Results * SCAN - LABS (12/20/2019) us Provider Scanning Final Result documented in this encounter Visit Diagnoses Not on filedocumented in this encounter Care Teams Telecommunications Project Manager Relationship Specialty Start Date End Date Zenaida Rodriguez DO [address] [place] [id number] PCP - General 09/03/17 documented as of this encounter
--- OUTSIDE RECORDS SUMMARY | 2024-08-24 18:09 | XMS_ITS | Patient Health Summary ---
Author Organization [facility] Address [address] [place] [address] Care Team Providers Care Nut Steamer Name Role Phone Unavailable Primary Care Provider Unavailabl e Note from [facility],non-owned Affiliates and Associated Physician Practices is amultiple site organization consisting of ambulatory clinics and hospital sitesin [place], [place], [place] and [place]. This disclosure is being madepursuant to the Care Everywhere program and may not contain all information available regarding this patient. Last updated 18.[facility] Social History Tobacco Use Types Packs/Day Years Used Date Smoking Tobacco: Never Assessed Sex and Gender Information Value Date Recorded Sex Assigned at Not on file Gender Identity Not on file Sexual Orientation Not on file Procedures * DERMATOPATHOLOGY(Performed 06/22/2023) Results * DERMATOPATHOLOGY (06/22/2023 12:00 AM VIDEO GAME DEVELOPER) Case Report Dermatopathology Report ? Case: [id number] ? Authorizing Provider: ??Ángel Ogden MD ?Collected: ? 06/22/2023 12:00 AM ? Ordering Location: ? [facility] DermPath Lab ? Received: ?06/29/2023 06:56 AM ? Pathologist: ? Luci Galvan, ? MD ? Specimen: ?Skin, left lat neck ? 3 5:18 PM [facility] DERMATOPATHOLOGY LABORATORY Final Diagnosis Specimen A. SKIN, left lat neck: SEBORRHEIC KERATOSIS (L82.1) 3 5:18 PM [facility] DERMATOPATHOLOGY LABORATORY Clinical History Nevus 3 5:18 PM [facility] DERMATOPATHOLOGY LABORATORY Gross Description Specimen A: Received is one formalin filled container labeled with the patients name and designated left lat neck. The specimen consists of a shave removal measuring 6x3x5 mm. Jar 0+. 3 5:18 PM [facility] DERMATOPATHOLOGY LABORATORY Microscopic Description Specimen A. SKIN, left lat neck: Sections show an acanthotic lesion composed of relatively uniform keratinocytes. There is hyperkeratosis and pseudo horn cysts formation. 3 5:18 PM [facility] DERMATOPATHOLOGY LABORATORY Disclaimer An external and internal positive and negative controls are appropriate for the histochemical, immunohistochemical and immunofluorescence stain(s) in this case (if any), except where stated explicitly. The performance characteristics of the stain(s) cited in this report were developed and its performance characteristic determined by the Dermatopathology Laboratory at [facility], directed by Dr. Tristan Swanson. These tests need not be, and therefore are not, approved by the [place] Food and Drug Administration. The tests are used for clinical purposes. Billing Codes Specimen Charges Stain Charges 76636 1 3 5:18 PM VIDEO GAME DEVELOPER DERMATOPATHOLOGY LABORATORY Embedded Images 3 5:18 PM VIDEO GAME DEVELOPER DERMATOPATHOLOGY LABORATORY Pathology/Cytolog y TISSUE SPECIMEN FROM SKIN / Unknown 06/22/2023 06/29/2023 6:56 AM VIDEO GAME DEVELOPER Ángel Ogden MD LAB - PATHOLOGY/CYTO LOGY ORDERABLES DERMATOPATHOLOGY LABORATORY [facility] - Department of Dermatology [facility] [address] [place] [address], [address] [phone]
--- OUTSIDE RECORDS SUMMARY | 2024-08-24 18:09 | XMS_ITS | Referral Summary ---
Author Organization [facility] Address [address] [place] [address] Care Team Providers Care Concrete Precast Moulder Name Role Phone Unavailable Primary Care Provider Unavailabl e Source Comments [facility],non-owned Affiliates and Associated Physician Practices is amultiple site organization consisting of ambulatory clinics and hospital sitesin [place], [place], [place] and [place]. This disclosure is being madepursuant to the Care Everywhere program and may not contain all information available regarding this patient. Last updated 18.[email or web address] [email or web address] Social History Tobacco Use Types Packs/Day Years Used Date Smoking Tobacco: Never Assessed Sex and Gender Information Value Date Recorded Sex Assigned at Not on file Gender Identity Not on file Sexual Orientation Not on file Plan of Treatment Not on file
--- OUTSIDE RECORDS SUMMARY | 2024-08-24 18:09 | XMS_ITS | Clinical Summary ---
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 Name Role Phone Zenaida Rodriguez DO Primary [...] Influenza, Trivalent, Preser vative Free, Intramuscular 05/10/2008 Surgical History Surgery Date Site/Laterality Comments TUBAL LIGATION Medical History Medical History Date Comments Primary pulmonary hypertension (HCC) Primary pulmonary hypertension - (Added by TW Conv) Family History Medical History Relation Name Comments Diabetes Father Heart disease Father Hypertension Father Heart disease Mother Hypertension Mother Stroke Mother Relation Name Status Comments Father Mother Social History Tobacco Use Types Packs/Day Years [...] on file 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 Gender Identity Not on file Sexual Orientation Not on file Obstetrics History Last Filed Vital Signs Vital Sign Reading [...] 01/26/2023 12:45 PM CDT Plan of Treatment Health Maintenance Due Date Last Done Comments Breast Cancer Screening-Mammogram 1972 Cervical Cancer Screening 1972 Colon Cancer Screening-Colonoscopy 1972 Depression Screening 1972 Hepatitis C Screening 1972 Pneumococcal vaccine <65 (1 of 2 - PCV) 1978 DTaP/Tdap/Td Vaccine (1 - Tdap) 1983 Hepatitis B Screening 1990 Regular Well Visit/Exam 18-64 1990 Zoster Vaccine (1 of 2) 2022 Covid-19 Vaccine (3 - 2023-2 5 season) 2024 04/04/2021, 03/14/2021 Influenza Vaccine (#1) 2024 , 09/16/2021, 09/05/2020, Additional history exists Insurance [facility] Advance Directives For more information, please contact: [phone] * Full Code (Latest Code Status on File) Date Activated Date Inactivated Comments 09/16/2021 2:37 PM 09/16/2021 7:21 PM Care Teams Tank Furnace Operator Relationship Specialty Start Date End Date Zenaida Rodriguez DO [address] [place] [id number] PCP - General 09/03/17
--- OUTSIDE RECORDS SUMMARY | 2024-08-24 18:09 | XMS_ITS | Continuity of Care Document ---
Author Organization [facility] [place] [address] [place] [address] [address] [place] [address] Phone Care Team Providers Care Sliver Lap Machine Tender Name Role Phone Mac OD, Silvestre Unavailable Unavailable Procedures Procedure Date Eye Exam & Treatment Refraction CL Replacement - Vistakon Disp W/BW Soft Tax - Medical Eye Exam, New Patient Refraction CL Replacement - Vistakon Disp W/BW Soft Tax - Medical Advance Directives Directive Yes / No Effective Date File Name No Information Encounters Encounter Description Practice Location Reason(s) For Visit Diagnoses Date Provider Providers Copied on Encounter [facility], [address] [place] [address] [address], [place], [place], [id number], tel:[phone] [facility] [place] No Information Oct-2 3-200 8 Mac OD Silvestre. [address] , [address], [place], [address], [place]. tel:[phone] [facility], [address] [place] [address] [address], [place], [place], [id number], tel:[phone] [facility] [place] No Information Sep-0 7-200 7 Mac OD Silvestre. [address], [place], [address], [place]. tel:[phone] Family History Family Member Type Diagnosis Age At Onset No Information Payers Payer name Insurance type Covered democrat ID Avery ellsworth(s) [facility] Commercial CI [id number] Social History Type Description Quantity Date Captured Comments Sex Female Smoking Status No Information Chief Complaint And Reason For Visit No Information Reason For Referral Reason For Referral No Information History Of Present Illness Encounter Date Complaint History Of Prese nt Illness No Information Functional Status Date Functional Assessmen t No Information Instructions Date Instruction Additional Infor mation No Information Assessments Type Assessment Date No Information Patient Care Teams Name Effective Dates (start - stop) Status Members No Information
--- OUTSIDE RECORDS SUMMARY | 2024-08-24 18:09 | XMS_ITS | Clinical Summary ---
Author Organization [facility] Address [address] [address] Care Team Providers Care Manager Cardiovascular Name Role Phone Unavailable Primary Care Provider Unavailabl e Source Comments [facility],non-owned Affiliates and Associated Physician Practices is amultiple site organization consisting of ambulatory clinics and hospital sitesin [place], [place], [place] and [place]. This disclosure is being madepursuant to the Care Everywhere program and may not contain all information available regarding this patient. Last updated 18.[facility] Social History Tobacco Use Types Packs/Day Years Used Date Smoking Tobacco: Never Assessed Sex and Gender Information Value Date Recorded Sex Assigned at Not on file Gender Identity Not on file Sexual Orientation Not on file Plan of Treatment Health Maintenance Due Date Last Done Comments COLOGUARD (AGES 45-75) - COL ON CA SCREENING 1972 COLON MONITORING 1972 COLONOSCOPY - COLON CA SCREENING 1972 CT COLONOGRAPHY - COLON CA SCREENING 1972 Colorectal Cancer Screening 1972 FIT - COLON CA SCREENING 1972 FLEX SIG - COLON CA SCREENING 1972 LIPID TESTING 1972 MAMMOGRAM 1972 PAP SMEAR 1972 HIV SCREENING 1987 HEPATITIS C SCREENING 08/19/1990 DTAP/TDAP/TD VACCINES (1 - Tdap) 1991 HEPATITIS B VACCINE (1 of 3 - 19+ 3-dose series) 1991 PNEUMOCOCCAL VACCINE 50+ (1 of 1 - PCV) 2022 ZOSTER VACCINE (1 of 2) 2022 COVID-19 VACCINE (1 - 2023-2 5 season) 2024 INFLUENZA VACCINE (#1) 2024 DEPRESSION SCREENING 08/02/2024 HIB VACCINE Aged Out No longer eligi ble based on patient's age to complete this topic HPV VACCINE Aged Out No longer eligi ble based on patient's age to complete this topic MENINGOCOCCAL (Group B) VACCINE Aged Out No longer eligible based on patient's age to complete this topic MENINGOCOCCAL VACCINE Aged Out No melany archana eligible based on patient's age to complete this topic PNEUMOCOCCAL VACCINE Aged Out No long er eligible based on patient's age to complete this topic
--- OUTSIDE RECORDS SUMMARY | 2024-08-24 18:10 | XMS_ITS | Data Portability ---
Author Organization [facility] [place] Address [address] [place] [place] [address] [place] [address] Care Team Providers Care Seo Specialist Name Role Phone STEW JACOBSON Primary Care Provider Assessment No assessment recorded. Plan of Treatment Reminders Order Date Submit Date Provider Last Modified By Organization Details Last Modified Time Details Appointments None recorded. Lab test, urine 2022 023 alessandra [place], [address], [place], [address], 3 18:13:25 urinalysis, dipstick 2022 023 alessandra [place], [address], [place], [address], 3 16:30:07 Referral None recorded. Procedures None recorded. Surgeries robotic assisted hysterectom y w/bilateral salpingo-oo phorectomy (SURG) 2022 023 [id number] [place] [facility], [facility] [facility], [place], [address], 3 02:33:04 Imaging US, pelvis 2022 023 joce [place], [address], [place], [address], 3 00:02:34 US, transvagina l 2022 023 [email or web address] [place], [address], [place], [address], 3 00:02:34 Medication Orders None recorded. Patient TargetsNo targets recorded. Patient InstructionsNo instructions recorded. Reason for Referral None Reported. Results Created Date Observation Date Name Description Value Unit Range Abnormal Flag Note LastModifiedBy Organization Detail LastModifiedTime 02/23/2002/22/2023 SURGI PRIYANKA PATHO LOGY surgical pathology SEE RESULT S BELOW CASE REPOR T: Surgi priyanka Patho logy Repor t Case: [id number] Autho aspen g Provi nilsa: Diana Alonso MD Colle cted: 02/22 1747 Order ing Locat ion: [place] Patho logy Recei ivy: 02/23 0216 Patho logis t: Ed Méndez MD Speci men: Endom etriu m, EMB FINAL DIAGN OSIS: Endom etriu m, biops y: -Deci duali zed endom etriu m. -No endom etria l hyper plasi a or malig nant tumor ident ified . Elect chris licea by Ed Méndez MD on 2022 at 1:39 PM ----- ----- ----- ----- ----- ----- ----- ----- ----- ----- ----- ----- ----- ----- ----- ----- ----- ---- CLINI PRIYANKA INFOR MATIO N: r93.8 9 MICRO SCOPI C DESCR IPTIO N: A micro scopi c exami natio n was perfo rmed. GROSS DESCR IPTIO N: A. Endom etriu m. The speci men is label ed with the patie nt's name, demog raphi cs and EMB . Recei ivy in forma alexandra is a 4.0 x 4.0 x 0.[address] of mucus and red-t an tissu e. The entir e speci men is submi tted in 3 casse ttes. Gross ed by Shawn moy Not Available [facility] (Lab) [address], [place], [address], 02/23/2023 14:42:20 02/23/20 23 02/22/2023 pregn cedrick test, urine HCG negati ve Not Available [place] [address], [place], [address], 02/22/2023 18:13:15 03/25/20 23 03/25/2023 CULTU RE: URINE result report SEE RESULT S BELOW Test: Cultu re: Urine Speci men Sourc e: Urine Voide d Speci men Type: Urine Speci men Date: 2022 4:03 PM Resul t Date: 2022 8:14 AM Resul t Statu s: Final resul t Abnor mal: No Resul ting Lab: [facility] [address] [facility] [address] Tel: CULTU RE ----- ----- ----- --- Cultu re resul t (>=3 organ isms prese nt) indic ates possi ble conta minat ion. Repea t cultu re if sympt oms indic ate. Not Available [facility] (Lab) [address], [place], [address], 03/27/2023 09:16:29 03/25/20 23 03/25/2023 urina lysis , dipst ick Leukocytes +1 Not Available [facility] [address], [place], [address], 03/25/2023 16:29:47 03/25/20 23 03/25/2023 urina lysis , dipst ick Blood +++ Not Available [place] [address], [place], [address], 03/25/2023 16:29:47 02/17/20 23 02/16/2023 US, pelvi s No observ ation record ed. [facility] [address], [place], [address], 02/16/2023 18:02:56 02/17/20 23 02/16/2023 US, trans vagin al No observ ation record ed. [facility] [address], [place], [address], 02/16/2023 18:03:06 02/17/20 23 02/16/2023 US, pelvi s No observ ation record ed. [email or web address] [address], [place], [address], 02/16/2023 23:40:04 Result Notes None recorded. 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 2 12:36:00 Screenin g for malignan t neoplasm of rectum Completed 201610/18/2021 Encounte r for screenin g for malignan t neoplasm of rectum;P ractice ID: 0001 Jennifer cobos, [facility] 2 12:35:57 Insertio n of intraute rine contrace ptive device Completed 201610/18/2021 Encounte r for insertio n of intraute rine contrace ptive device;P ractice ID: 0001 Jennifer cobos, [facility] 2 12:35:52 Pregnanc y test negative [id number] Completed 201610/18/2021 Encounte r for pregnanc y test, result negative ;Practic e ID: 0001 Jennifer cobos [facility] 2 12:35:54 Contrace ptive sheath status [id number] Completed 201610/18/2021 Encounte r for routine checking of intraute rine contrace p dev;Prac bailey ID: 0001 Jennifer cobos, [facility] 2 12:35:49 Clinical finding Completed 201610/18/2021 Presence of (intraut erine) contrace ptive device;R ecorded Elsewher e: No [facility] EHR Human Resources Temp deborah: N Practi ce ID: 0001 Rudy lable Time: 12:45:00 PM Jennifer cobos, [facility] 2 12:35:46 Body mass index 30+ - obesity [id number] Completed 201810/18/2021 Body mass index (BMI) 35.0-35. 9, adult;Re corded Elsewher e: No Locat ion: Hiram guerra [facility] S ource: EHR Human Resources Temp deborah: N Practi ce ID: 0001 Rudy lable Time: 11:30:00 AM Jennifer cobos, [facility] 2 12:35:44 Finding of pattern of menstrua l cycle [id number] Completed 201610/18/2021 Irregula r interval between menstrua l bleeding ;Recorde d Elsewher e: No [facility] S ource: EHR Human Resources Temp deborah: N Practi ce ID: 0001 Rudy lable Time: 10:00:00 AM Jennifer [facility] 2 12:35:[address] Concept Completed 201610/18/2021 Encntr for general adult medical exam w/o abnormal findings ;Recorde d Elsewher e: No Locat ion: Hiram guerra [facility] S ource: EHR Human Resources Temp deborah: N Practi ce ID: 0001 Rudy lable Time: 10:00:00 AM Jenniefr cobos, [facility] 12:35:59 Problem Notes None recorded. Procedures Surgical History Date Name Laterality Status Provider Name and Address Organization Details Recorded Time 03/17/20 23 ROBOTIC ASSISTED HYSTERECTOMY W/BILATERAL SALPINGO-OOPHORE CTOMY (SURG) completed Deana Stevenson [facility] 03/18/2023 10:43:29 02/23/20 23 Endometrial Biopsy completed Riley Alonso MD [address], [place], [address], [facility] 02/23/2023 15:23:42 11/18/19 23 IUD Removal completed Viki Calzada [facility]- [address], [place], [address], [facility] 11/17/2022 10:50:55 10/19/19 22 Date of Last Pap Smear completed Jennifer Rogers [facility] 10/18/2021 14:06:46 10/02/19 18 Date of Last Mammogram completed Jennifer Rogers [facility] 10/18/2021 14:25:23 08/10/19 06 section completed Jennifer Rogers [facility] 10/18/2021 14:38:32 08/02/19 06 Tubal Ligation completed Jennifer Rogers [facility] 10/18/2021 14:38:45 08/02/19 02 Dilation and Curettage completed Jennifer Rogers [facility] 10/18/2021 14:39:06 Tubal Ligation completed Nicole [facility] 01/01/2022 12:07:39 Dilation and Curettage completed [facility] 01/01/2022 12:07:39 Imaging Results Imaging Date Name Status LastModified by Organization Details LastModified Time 02/16/2023 US, pelvis completed warren Rojas [address], [place], [address], 02/16/2023 18:02:56 02/16/2023 US, transvaginal completed warren guerra [address], [place], [address], 02/16/2023 18:03:06 02/16/2023 US, pelvis completed [email or web address] [address], [place], [address], 02/16/2023 23:40:04 Procedure Notes None recorded. Medical Equipment None Reported. Allergies Allergen ID Allergen Name Allergen Category Reaction Reaction Severity Criticality Documentation Date Start Date Code Code System Note Provider Name and Address Organization Details Recorded Time 02050 Product containin g penicilli n and antibioti c (product) medicatio n Not available Not available Not available 07/19/2020 18706 05 SNOMED Comme nt: [facility]; Not Available [facility] 14:20:36 Medications Name Sig Start Date Stop Date Status Note LastModified by Organization Details LastModified Time methocarb faheem 500 mg tablet TAKE 1 TABLET BY MOUTH THREE TIMES A DAY 11/17 completed Not Available Not Available Not Available hydrocodo ne 5 mg-acetam inophen 325 mg tablet TAKE 1 TABLET BY MOUTH EVERY 6 HOURS 11/17 completed Not Available Not Available Not Available diltiazem ER 360 mg capsule,2 4 hr,extend ed release take 1 capsule by oral route every day 10/18 completed Prescrib ed Elsewher e: Yes Loca tion: Hiram guerra [facility] odify By: naveen lopesuntanjel DateTime : 09/23/19 17 10:00:00 AM Not Available Not Available Not Available triamcino lone acetonide 0.1 % topical cream APPLY TOPICALL Y TWICE A DAY 11/17 completed Not Available Not Available Not Available spironola ctone 25 mg tablet take 1 tablet by oral route every day 11/17 completed Prescrib ed Elsewher e: Yes Loca tion: [facility] odify By: naveen dykes DateTime : 09/23/19 17 10:00:00 AM Not Available Not Available Not Available oxycodone -acetamin ophen 5 mg-325 mg tablet TAKE 1 TABLET BY MOUTH EVERY 4 HOURS NEEDED FOR PAIN active Not Available Not Available No t Available omeprazol e 10 mg capsule,d elayed release take 2 capsule by oral route every day before a meal 10/18 completed Prescrib ed Elsewher e: Yes Loca tion: [facility] odify By: naveen dykes DateTime : 09/23/19 17 10:00:00 AM Not Available Not Available Not Available doxycycli ne monohydra te 100 mg capsule TAKE 1 CAPSULE BY MOUTH TWICE A DAY 10/18 completed Not Available Not Available Not Available pantopraz ole 40 mg tablet,de layed release TAKE 1 TABLET BY MOUTH EVERY DAY active Not Available Not Available No t Available buspirone 10 mg tablet TAKE 1/2 TABLET BY MOUTH 3 TIMES A DAY 11/17 completed Not Available Not Available Not Available warfarin 2 mg tablet TAKE 1.5 TABLETS (3 MG TOTAL) BY MOUTH DAILY active Not Available Not Available No t Available furosemid e 40 mg/5 mL (8 mg/mL) oral solution take 5 millilit er by oral route every day 11/17 completed Prescrib ed Elsewher e: Yes Loca tion: [facility] odify By: naveen dykes DateTime : 09/23/19 17 10:00:00 AM Not Available Not Available Not Available furosemid e 20 mg tablet TAKE 2 TABLETS (40 MG TOTAL) BY MOUTH DAILY. active Not Available Not Available No t Available norethind nichole acetate 5 mg tablet active Not Available Not Available No t Available methylpre dnisolone 4 mg tablets in a dose pack TAKE 6 TABLETS ON DAY 1 DIRECTED ON PACKAGE AND DECREASE BY 1 TAB EACH DAY FOR A TOTAL OF 6 DAYS 11/17 completed Not Available Not Available Not Available albuterol sulfate HFA 90 mcg/actua tion aerosol inhaler INHALE 2 PUFFS EVERY 4 HOURS NEEDED FOR SHORTNES S OF BREATH/W HEEZING active Not Available Not Available No t Available Vitamin D2 1,250 mcg (50,000 unit) capsule take 1 capsule by oral route every week 11/17 completed Prescrib ed Elsewher e: Yes Loca tion: [facility] odify By: naveen dykes DateTime : 09/23/19 10:00:00 AM Not Available Not Available Not Available Terazol 7 0.4 % vaginal cream insert 1 applicat orful by vaginal route every day for 7 days at bedtime 10/01 completed Prescrib ed Elsewher e: No Locat ion: [facility] odify By: becca rojo DateTime : 09/25/19 03:29:58 PM Not Available Not Available Not Available doxycycli ne hyclate 100 mg tablet TAKE 1 TABLET BY MOUTH TWICE A DAY 11/17 completed Not Available Not Available Not Available spironola ctone 50 mg tablet TAKE 1 TABLET BY MOUTH EVERY DAY active Not Available Not Available No t Available Letairis 10 mg tablet active Not Available Not Available Not Available Matzim LA 240 mg tablet,ex tended release TAKE 1 TABLET BY MOUTH TWICE A DAY 11/17 completed Not Available Not Available Not Available tadalafil 20 mg tablet (pulmonar y hypertens ion) active Not Available Not Available Not Available Anusol-HC 2.5 % topical cream with perineal applicato r apply by topical route 2 times every day to the affected area(s) 10/18 completed Prescrib ed Elsewher e: No Locat ion: [facility] odify By: refugio dykes DateTime : 06/05/20 11:30:00 AM Not Available Not Available Not Available Vitals Date Recorded Body height Body mass index (BMI) Body weight Systolic blood pressure Diastolic blood pressure Provider Name and Address Organization Details Last Updated DateTime 02/12/2023 143.54 cm 41.4 kg/m2 54103.37 g 124 mm[Hg] 64 mm[Hg] Nicole Hsu [facility] 3 16:19:46 Date Recorded Body height Body mass index (BMI) Body weight Systolic blood pressure Diastolic blood pressure Provider Name and Address Organization Details Last Updated DateTime 02/22/2023 143.54 cm 42 kg/m2 97694.14 g 112 mm[Hg] 71 mm[Hg] Nicole Hsu [facility] 3 16:52:00 Date Recorded Body height Body mass index (BMI) Body weight Systolic blood pressure Diastolic blood pressure Provider Name and Address Organization Details Last Updated DateTime 03/25/2023 143.54 cm 39.6 kg/m2 61684.63 g 127 mm[Hg] 77 mm[Hg] Nicole Hsu [facility] 3 10:28:15 Social History Question Answer Notes LastModified by Organizat ion Details LastModified Time Tobacco Smoking Status Never Smoker [facility] 03/25/2023 10:20:36 Do You Have An Advance Directive? No Information n ot available 01/01/2022 What Is Your Level Of Alcohol Consumption? Occasional [email or web address] Information not available 10/18/2021 Are You Blind Or Do You Have Difficulty Seeing? No [email or web address] Information n ot available 10/18/2021 What Is Your Level Of Caffeine Consumption? Moderate [email or web address] Information not available 10/18/2021 How Much Tobacco Do You Chew? None Information not available 11/17/2022 In The 14 Days Before Symptom Onset, Have You Had Close Contact With A Laboratory-confirm ed COVID-19 While That Case Was Ill? No [email or web address] Information n ot available 10/18/2021 In The 14 Days Before Symptom Onset, Have You Had Close Contact With A Person Who Is Under Investigation For COVID-19 While That Person Was Ill? No [email or web address] Information not available 10/18/2021 Have You Been To An Area Known To Be High Risk For COVID-19? No [email or web address] Information not available 10/18/2021 Are You Deaf Or Do You Have Serious Difficulty Hearing? No [email or web address] Information not available 10/18/2021 What Type Of Diet Are You Following? CARDIAC [email or web address] Information n ot available 10/18/2021 What Is The Highest Grade Or Level Of School You Have Completed Or The Highest Degree You Have Received? [id number] Information not available 01/01/2022 What Is Your Occupation? [employer] Information not available 01/01/2022 Have You Ever Been Counseled For Unhealthy Alcohol Use? No [email or web address] Information not available 03/25/2023 Do You Use Protection During Sex? No Information not available 01/01/2022 Do You Use Your Seat Belt Or Car Seat Routinely? Yes [email or web address] Information not available 10/18/2021 Do You Have Smoke And Carbon Monoxide Detectors In Your Home? Yes Information not available 10/18/2021 How Much Tobacco Do You Smoke? No Information not available 01/01/2022 Do You Feel Stressed (tense, Restless, Nervous, Or Anxious, Or Unable To Sleep At Night)? [id number] Information not available 10/18/2021 Do You Use Any Illicit Or Recreational Drugs? No [email or web address] Information not available 10/18/2021 Do You Use Sunscreen Routinely? Yes [email or web address] Information not available 10/18/2021 Has Tobacco Cessation Counseling Been Provided? No [email or web address] Information not available 03/25/2023 Have You Used IV Drugs? No Information not available 01/01/2022 Do You Or Have You Ever Used Any Other Forms Of Tobacco Or Nicotine? No [email or web address] Information not available 03/25/2023 Sex: Unknown Functional Status Question Answer Note LastModified by Organizat ion Details LastModified Time Do you have difficulty walking or climbing stairs? No [email or web address] Information not available 03/25/2023 Are you able to walk? YESWOREST Information not available 10/18/2021 Are you able to care for yourself? Yes [email or web address] Information not available 03/25/2023 Do you have difficulty dressing or bathing? No [email or web address] Information not available 03/25/2023 What is your exercise level? Occasional [email or web address] Information not available 10/18/2021 Mental Status None recorded. Family History Relationship Description Onset Age of this Age Resolved Age Notes LastModified by Organization Details LastModified Time Mother Hyperlipidem ia [email or web address] Not available 2022 10:20:34 Mother Hypercholest erolemia [email or web address] Not available 10/18 14:31:42 Mother Hypertensive disorder [email or web address] Not available 10/18 14:33:09 Father Hyperlipidem ia Not available 2022 10:20:34 Father Hypercholest erolemia [email or web address] Not available 10/18 14:31:42 Father Hypertensive disorder [email or web address] Not available 10/18 14:33:09 Father Diabetes mellitus Not available 10/18 14:33:48 Sister Hyperlipidem ia [email or web address] Not available 2022 10:20:34 Sister Hypercholest erolemia [email or web address] Not available 10/18 14:31:42 Sister Hypertensive disorder Not available 10/18 14:33:09 Sister Malignant tumor of breast [email or web address] Not available 10/18 14:34:01 Brother Hyperlipidem ia Not available 2022 10:20:34 Brother Hypercholest erolemia [email or web address] Not available 10/18 14:31:42 Brother Hypertensive disorder [email or web address] Not available 10/18 14:33:09 Maternal Grandmother Hypertensive disorder [email or web address] Not available 10/18 14:33:23 Maternal Grandmother Diabetes mellitus [email or web address] Not available 10/18 14:33:48 Maternal Aunt Diabetes mellitus [email or web address] Not available 10/18 14:33:48 Medical History Condition Response Allergies (Food, seasonal, environmental ) Y Other N Blood Transfusion N Drug/Latex Allergies/Reactions Y Breast Cancer N Dermatologic Disorders N Lung Disease Y Defects or Inherited Disease N Breast Problem N Gestational Diabetes N Anesthesia Complications N History of STI N Deep Vein Thrombosis N Polycystic ovary syndrome N Anxiety Disorder Y Autoimmune disease N Arthritis N Infertility Y Polyps N Acid Reflux (GERD) Y History of abnormal pap N Cancer N Stroke N Varicosities N Neurologic/Epilepsy N Endometriosis N High Cholesterol N Headaches N Fibromyalgia N Kidney Disease N Heart Problems Y Kidney or Bladder Problems N Thyroid Problems N GI Problems N Eating Disorder N Anemia N Art (IVF or FET) N Psychiatric Illness N Ovarian Cancer N Diabetes N Pulmonary (TB, Asthma) Y Hepatitis/Liver Disease N No Past Medical History N Eczema N Urinary Tract Infection N Abuse/Domestic Violence N Asthma Y Trauma/Violence N Depression/ depression Y Heart Disease N Pre-Eclampsia N Hypertension Y Osteoporosis N Thrombophilias N Gynecological History Statement/Question Response Date of Last Mammogram 10/01/2017 Date of LMP 06/05/2017 On BCP's at Conception? N N Was last menstrual period normal N STIs/STDs N HPV Vaccine N Current Control Method Hysterectom y Most Recent Bone Density Sexually Active? Y Menses Monthly N Age of first menstrual cycle 12 Date of Last Pap Smear 10/18/2021 Sexual Problems? N Desired Control Method IUD LMP Approximate N Obstetrics History GPAL:G 4 P 2 0 2 2 Type Value Full Term 2 Spontaneous 2 Living 2 Total 4 Past Encounters Encounter ID Performer Location Encounter Start Date Encounter Closed Date Diagnosis/Indication Diagnosis SNOMED-CT Code Diagnosis ICD10 Code Diagnosis Note [id number] Viki Calzada , [facility] [address] [address] 10/18/2021 12:01:04 10/18/2021 12:49:01 Gynecologic examination 20273662 Z01.419 Suggested Calcium with Vitamin D 1200-1500m g daily. Patient advised to get an annual flu shot in the fall and she could obtain at [facility] or [facility]. Also to obtain TDap vaccinatio n if you have not had one in the last 10 years. Recommend yearly mammograms . Encouraged monthly self breast exams. Encourage safe sexual practices, to use condoms and limit partners if not already in a monogamous relationsh ip. Engage in daily exercise of low impact aerobic exercise 45-60 minutes 4-5 times weekly. Avoid tobacco and illicit drugs as well as using moderation with alcohol intake less than 1-2 8 oz beverages daily. This lifestyle behavior pattern will lead to less health conditions and longer life span. If BMI greater than 25 weight watchers or dietary consult advised. All questions have been answered. Patient appears to understand informatio n, but if you have any questions please call or respond to this email. Pap/hpv SentSTD Screen declinedGe netic Screen discussedC olon Screen PCP managedDex a Screen n/aRoutine Labs PCP managedMam mo orderedMir whitney IUD placed 10/27/2016A Mirena IUD prevents for up to 7 years, and also helps with heavy periods for up to 5 years in women who choose an IUD for control. [id number] Riley Alonso MD [place] [address] [address] 01/01/2022 11:28:50 01/01/2022 14:37:24 Pain in pelvis 84337663 R10.2 this patient is a 51-year-ol d female who presents for ER follow-up. She had a ruptured ovarian cyst that bled in the pelvis. She presented the ER. CT of the abdomen pelvis detected these findings. She was admitted overnight for pain control. She was discharged the next day. She continues to have some pain but is improved fairly quickly. She requires some pain management at this time however. We talked about follow-up on this ovarian cyst. We agreed to perform a pelvic ultrasound and discuss those findings after the evaluation . We spent over 15 minutes face-to-fa ce. She will return after pelvic ultrasound . Cyst of ovary 92528587 N 83.209 [id number] Ju Marin [place] [address] [address] 01/06/2022 11:18:24 01/06/2022 12:01:17 Pain in pelvis 44523631 R10.2 this patient is a 51-year-ol d female who presents for ER follow-up. She had a ruptured ovarian cyst that bled in the pelvis. She presented the ER. CT of the abdomen pelvis detected these findings. She was admitted overnight for pain control. She was discharged the next day. She continues to have some pain but is improved fairly quickly. She requires some pain management at this time however. We talked about follow-up on this ovarian cyst. We agreed to perform a pelvic ultrasound and discuss those findings after the evaluation . We spent over 15 minutes face-to-fa ce. She will return after pelvic ultrasound . [id number] Riley Alonso MD [place] [address] [address] 01/08/2022 16:41:03 01/08/2022 17:44:16 Cyst of left ovary [id number] N83.202 This patient is a 51-year-ol d female who I spoke to on the phone. She was seen previously for follow-up after an emergency room visit. She had pain and a cyst on the left side. She continues to have a cyst on left side of 3 cm and a associated follicle of 15 mm. She has some intermitte nt pain it is actually constant with waxing and waning. Sometimes it is moderate to severe and other times it is mild. We agreed that we would follow-up on the ovarian cyst in 6 weeks with ultrasound and she would see me after that. We talked about the treatment of cyst. We spent 15 minutes discussing the issue. We discussed the etiology, natural history, treatment of ovarian cyst. We discussed surgery. We agreed to observe and repeat ultrasound . [id number] Ju Tania [place] [address] [address] 02/12/2022 15:53:53 02/12/2022 16:55:36 Cyst of left ovary [id number] N83.202 This patient is a 51-year-ol d female who I spoke to on the phone. She was seen previously for follow-up after an emergency room visit. She had pain and a cyst on the left side. She continues to have a cyst on left side of 3 cm and a associated follicle of 15 mm. She has some intermitte nt pain it is actually constant with waxing and waning. Sometimes it is moderate to severe and other times it is mild. We agreed that we would follow-up on the ovarian cyst in 6 weeks with ultrasound and she would see me after that. We talked about the treatment of cyst. We spent 15 minutes discussing the issue. We discussed the etiology, natural history, treatment of ovarian cyst. We discussed surgery. We agreed to observe and repeat ultrasound . [id number] Riley Alonso MD [place] [address] [address] 02/18/2022 14:11:58 02/20/2022 03:52:23 [id number] [facility] [address] [address] 11/17/2022 10:19:23 11/17/2022 10:53:27 Gynecologic examination [id number] Z01.419 Z11.51 Suggested Calcium with Vitamin D 1200-1500m g daily. Patient advised to get an annual flu shot in the fall and she could obtain at [facility] or [facility]. Also to obtain TDap vaccinatio n if you have not had one in the last 10 years. Recommend yearly mammograms . Encouraged monthly self breast exams. Encourage safe sexual practices, to use condoms and limit partners if not already in a monogamous relationsh ip. Engage in daily exercise of low impact aerobic exercise 45-60 minutes 4-5 times weekly. Avoid tobacco and illicit drugs as well as using moderation with alcohol intake less than 1-2 8 oz beverages daily. This lifestyle behavior pattern will lead to less health conditions and longer life span. If BMI greater than 25 weight watchers or dietary consult advised. All questions have been answered. Patient appears to understand informatio n, but if you have any questions please call or respond to this email. Pap/hpv SentSTD Screen declinedGe netic Screen discussedC olon Screen PCP managedDex a Screen n/aRoutine Labs PCP managedMam mo ordered Removal of intrauterine device [id number] Z30.432 It was explained that she may have bleeding or spotting after the removal of the device today as well. If cannot see the strings of this device we will need to get an US image to make that the device is still in place and not in an unobtainab le position. She expressed understand ing of all the above instructio ns.Keep menstrual diary Screening mammography 24 [id number] Z12.31 [id number] Riley Alonso MD [place] [address] [address] 02/12/2023 15:53:52 02/13/2023 12:43:53 Menorrhagia [id number] N92.0 This patient is a 52-year-ol d female who presents for follow-up from the emergency department for menorrhagi a. Episode of vadim y heavy bleeding. She has longstandi ng very heavy bleeding. Her menses are regular. However, they require double protection . Patient has accidents, getting blood on her bedding and clothing. Is affected work. She changes a pad or tampon every hour. She leaks blood around the pad and tampon. This bleeding has a profound impact on her quality of life and her activities of daily living We talked about treatment options in detail. Talked about medical treatment options. The patient would like definitive surgical treatment. We talked about surgical treatment options in detail. We are going to proceed with robotic assisted hysterecto my with bilateral salpingo-o ophorectom y. We spent 40 minutes face-to-fa ce. More than 50% was counseling . We made a decision to perform surgery.Th e patient is getting ultrasound , she is going to return to discuss ultrasound and have an endometria l biopsy, hysterecto my order is already in We will continue plan for Hysterecto myt. She will not need a preoperati ve visit. we are going to do informed consent at the next visit. [id number] [facility] [address] [address] 02/16/2023 16:27:10 02/16/2023 17:39:05 Abnormal uterine bleeding [id number] 9100 N93.9 [id number] Riley Alonso MD [place] [address] [address] 02/22/2023 16:16:43 02/24/2023 09:45:00 Screening procedure [id number] Z13.9 Endometrium thickened 44 [id number] R93.89 endometria l biopsy performed. She tolerated it well. [id number] Riley Alonso MD [place] [address] [address] 03/25/2023 10:20:09 03/26/2023 12:46:51 Urinary symptoms [id number] R39.9 Postoperative care [id number] Z48.89 female Patient presents for postop follow-up. She is 1 week postop from a total laparoscop ic hysterecto my bilateral salpingect audrey /oophorect audrey. She has no complaints . Her incisions are clean dry and intact. She is recovering normally. She will follow-up as needed. Health Concerns Section Related Observation LastModified by Organization Detai ls LastModified Time None Recorded Concern Status LastModified by Organization Details LastModified Time None Recorded Advance Directives Directive N: Payers Encounter Date Sequence Insurance Name Policy Number Policy Ward Covered Member ID Ward Member ID Guarantor Name 02/12/2023 2 [facility] (MEDICAID HMO) [id number] Laina Loulou [id number] Laina Loulou 02/12/2023 1 [place] [id number] Laina K Loulou [id number] Laina Loulou 02/16/2023 2 [facility] (MEDICAID HMO) [id number] Laina Loulou [id number] Laina Loulou 02/16/2023 1 [place] [id number] Laina K Loulou [id number] Laina Loulou 02/22/2023 2 [facility] (MEDICAID HMO) [id number] Laina Loulou [id number] Laina Loulou 02/22/2023 1 [place] [id number] Laina K Loulou [id number] Laina Loulou 03/25/2023 2 [facility] (MEDICAID HMO) [id number] Laina Loulou [id number] Laina Loulou 03/25/2023 1 [place] [id number] Laina K Loulou [id number] Laina Loulou Notes Date Note Type Note Provider Name and Address Organization Details Recorded Time 02/12/2023 text/html This patient is a 52-year-old female who presents for follow-up from the emergency department for menorrhagia. Episode of vadim y heavy bleeding. She has longstanding very heavy bleeding. Her menses are regular. However, they require double protection. Patient has accidents, getting blood on her bedding and clothing. Is affected work. She changes a pad or tampon every hour. She leaks blood around the pad and tampon. This bleeding has a profound impact on her quality of life and her activities of daily living We talked about treatment options in detail. Talked about medical treatment options. The patient would like definitive surgical treatment. We talked about surgical treatment options in detail. We are going to proceed with robotic assisted hysterectomy with bilateral salpingo-oophorecto my. We spent 40 minutes [id number]. More than 50% was counseling. We made a decision to perform surgery.The patient is getting ultrasound, she is going to return to discuss ultrasound and have an endometrial biopsy, hysterectomy order is already in We will continue plan for Hysterectomyt. She will not need a preoperative visit. we are going to do informed consent at the next visit. Riley Alonso MD [address], [place], [address], [facility] 02/13/2023 10:56:55 02/22/2023 text/html year old female who presents for endometrial biopsy Riley Alonso MD [address], [place], [address], [facility] 02/23/2023 15:25:52 03/25/2023 text/html female Patient presents for postop follow-up. She is 1 week postop from a total laparoscopic hysterectomy bilateral salpingectomy /oophorectomy. She has no complaints. Her incisions are clean dry and intact. She is recovering normally. She will follow-up as needed. Riley Alonso MD [address], [place], [address], [facility] 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 Status 10/19/19 22 1 CLOSED Fetus Data First Name Last Name Admitted to NICU Weight (g) Sex Living Outcome Pediatric Complications Fetus ID Race Codes Race Delivery Type 3912.23 1 M Full Term [id number] Primary Dimitri Calculation Initial Dimitri Date Initial Exam Date Initial Exam Provider Initial Ultrasound Date Last Menstrual Period Date Ultra Sound Weeks Gestation 0 Eighteen To Twenty Week Dimitri Update Ultra Sound Date Fundal Height At Umbil Quickening Date Ultra Sound Latest Weeks Gestation Final Dimitri Confirmed By Final Dimitri Confirmed Date Final Dimitri Date Ultra Sound Latest Days Gestation 0 0 Menstrual History Last Menstrual Date Menses Monthly On Bcp Conception Prior Menses Frequency Hcg Plus Date Menarche Onset Age Delivery Information Delivery Date Delivery Type Labor Anesthesia Weeks Gestation Incision Type Labor Labor Length Hrs Delivered By Post Complications Tubal Sterilization Discharge Date Comments 6 40 Discharge Information Feeding Method Contraceptive Method Maternal HG B and HCT Levels Ob Episode Information Episode Created Date Number of Fetuses Patient Bloodtype Patient rh Status Prepregnancy Weight lbs Domestic Partner Domestic Partner Phone Father Name Software Maintenance Engineer Status 10/19/19 22 1 CLOSED Fetus Data First Name Last Name Admitted to NICU Weight (g) Sex Living Outcome Pediatric Complications Fetus ID Race Codes Race Delivery Type , [place]ont[place] ous [id number] Dimitri Calculation Initial Dimitri Date Initial Exam Date Initial Exam Provider Initial Ultrasound Date Last Menstrual Period Date Ultra Sound Weeks Gestation 0 Eighteen To Twenty Week Dimitri Update Ultra Sound Date Fundal Height At Umbil Quickening Date Ultra Sound Latest Weeks Gestation Final Dimitri Confirmed By Final Dimitri Confirmed Date Final Dimitri Date Ultra Sound Latest Days Gestation 0 0 Menstrual History Last Menstrual Date Menses Monthly On Bcp Conception Prior Menses Frequency Hcg Plus Date Menarche Onset Age Delivery Information Delivery Date Delivery Type Labor Anesthesia Weeks Gestation Incision Type Labor Labor Length Hrs Delivered By Post Complications Tubal Sterilization Discharge Date Comments 2 D&C was done Discharge Information Feeding Method Contraceptive Method Maternal HG B and HCT Levels Ob Episode Information Episode Created Date Number of Fetuses Patient Bloodtype Patient rh Status Prepregnancy Weight lbs Domestic Partner Domestic Partner Phone Father Name Software Maintenance Engineer Status 10/19/19 22 1 CLOSED Fetus Data First Name Last Name Admitted to NICU Weight (g) Sex Living Outcome Pediatric Complications Fetus ID Race Codes Race Delivery Type 3005.04 7 F Full Term [id number] Vaginal Delivery Dimitri Calculation Initial Dimitri Date Initial Exam Date Initial Exam Provider Initial Ultrasound Date Last Menstrual Period Date Ultra Sound Weeks Gestation 0 Eighteen To Twenty Week Dimitri Update Ultra Sound Date Fundal Height At Umbil Quickening Date Ultra Sound Latest Weeks Gestation Final Dimitri Confirmed By Final Dimitri Confirmed Date Final Dimitri Date Ultra Sound Latest Days Gestation 0 0 Menstrual History Last Menstrual Date Menses Monthly On Bcp Conception Prior Menses Frequency Hcg Plus Date Menarche Onset Age Delivery Information Delivery Date Delivery Type Labor Anesthesia Weeks Gestation Incision Type Labor Labor Length Hrs Delivered By Post Complications Tubal Sterilization Discharge Date Comments 3 Discharge Information Feeding Method Contraceptive Method Maternal HG B and HCT Levels Ob Episode Information Episode Created Date Number of Fetuses Patient Bloodtype Patient rh Status Prepregnancy Weight lbs Domestic Partner Domestic Partner Phone Father Name Software Maintenance Engineer Status 10/19/19 22 1 CLOSED Fetus Data First Name Last Name Admitted to NICU Weight (g) Sex Living Outcome Pediatric Complications Fetus ID Race Codes Race Delivery Type , [place] o[place] [id number] Dimitri Calculation Initial Dimitri Date Initial Exam Date Initial Exam Provider Initial Ultrasound Date Last Menstrual Period Date Ultra Sound Weeks Gestation 0 Eighteen To Twenty Week Dimitri Update Ultra Sound Date Fundal Height At Umbil Quickening Date Ultra Sound Latest Weeks Gestation Final Dimitri Confirmed By Final Dimitri Confirmed Date Final Dimitri Date Ultra Sound Latest Days Gestation 0 0 Menstrual History Last Menstrual Date Menses Monthly On Bcp Conception Prior Menses Frequency Hcg Plus Date Menarche Onset Age Delivery Information Delivery Date Delivery Type Labor Anesthesia Weeks Gestation Incision Type Labor Labor Length Hrs Delivered By Post Complications Tubal Sterilization Discharge Date Comments 5 Discharge Information Feeding Method Contraceptive Method Maternal HG B and HCT Levels
== END 2024-08-22 12:13 | disposition home or self-care (01) ==
PROVIDERS: PCP Nurse Practitioner Family; Visit Provider Nurse Practitioner Family
DX: G56.01 Carpal tunnel syndrome, right upper limb (principal)
CPT/HCPCS: 95886; 95909